=== PATIENT | female | born 1970 | race Caucasian/White ===

== ENCOUNTER → 2017-10-17 11:02 | Outpatient (REF) | payer BC, SELFPAY | LOC: LBN 11:02 | PROVIDERS: PCP Emergency Medicine; Visit Provider Emergency Medicine | DX: R19.7 Diarrhea, unspecified (principal) | CPT/HCPCS: 87329 ==

== ENCOUNTER → 2017-10-17 12:52 | Outpatient (CLI) | payer BC, SELFPAY ==
[2017-10-20 10:26] LABS: Measles IgG Antibody Positive; Mumps Antibody IgG Positive (Negative); Rubella IgG Ab (UVM) Positive
[2017-10-20 12:46] LABS: HBs Antibody, Quant 44.1 mIU/mL; Hepatitis B Surface Ab Positive
== END ==
PROVIDERS: PCP Emergency Medicine; Visit Provider Emergency Medicine
DX: Z01.84 Encounter for antibody response examination (principal)
CPT/HCPCS: 36415; 86706; 86735; 86762; 86765

== ENCOUNTER 2018-01-02 17:49 | Outpatient (REF) | payer BC, SELFPAY ==
--- NOTE | 2018-01-02 16:00 | PAPFT_PTH ---
PATIENT: Jena Mancia LOC: [facility] U#:[id number] AGE/SX: 47/F ROOM: RE01/02/[address]: Ada Perez MD : 1970 BED: DIS: 01/02/2018 SPEC #: [id number] RECD: 01/05/18 17:44 STATUS: JUNE REFabienne #: [id number] DARRIAN: 01/02/18 16:[address]: Ada Perez DEPT: [facility] Cytology RECD BY: Angie Ocampo ENTERED: 01/05/18 17:44 SP TYPE: PAPFT OTHR DR: Titi Mendoza, DO Tissues: 1 - CX/ENDOCX FOR PAP SMEARS Procedures: PAP THIN PREP/UVM Screening HPV DNA PROBE Comments: [id number]
== END 2018-01-02 18:09 ==
LOC: LBN 17:49
PROVIDERS: PCP Emergency Medicine; Visit Provider Obstetrics & Gynecology
DX: Z12.4 Encounter for screening for malignant neoplasm of cervix (principal); Z11.51 Encounter for screening for human papillomavirus (HPV)
CPT/HCPCS: 88142; 87624

== ENCOUNTER 2018-01-05 11:25 | Outpatient (CLI) | payer BC, SELFPAY ==
--- NOTE | 2018-01-05 15:00 | DI.US_ITS ---
SYMPTOM/DIAGNOSIS: UTERINE FIBROIDS D25.9, LEIOMYOMA PELVIC ULTRASOUND: Transabdominal and transvaginal examination was performed. The uterus measures 9.1 cm long x 5.9 cm AP x 6.4 cm transverse. There is a mass in the fundus of the uterus measuring 5.7 cm AP x 4.6 cm cranial caudad. This likely reflects a uterine fibroid. The fibroid obscures evaluation of the endometrium. The ovaries were not visualized transabdominally or transvaginally. No adnexal mass is seen. The kidneys show no evidence of hydronephrosis. No free pelvic fluid is identified. IMPRESSION: Limited examination of the pelvis. 2. Fibroid uterus. If further characterization of the uterine fibroid is needed, MRI of the pelvis should be considered.
== END 2018-01-05 11:45 ==
PROVIDERS: PCP Emergency Medicine; Visit Provider Obstetrics & Gynecology
DX: D25.9 Leiomyoma of uterus, unspecified (principal)
CPT/HCPCS: 76830; 76856

== ENCOUNTER 2018-01-07 00:36 | Outpatient (CLI) | payer BC, SELFPAY ==
--- NOTE | 2018-01-07 17:24 | DI.MAMMO_ITS ---
SYMPTOM/DIAGNOSIS: SCREENING, Z12.31 MAMMOGRAMS: Mammograms were interpreted according to the usual protocol including computer analysis with CAD system, tomosynthesis and C view imaging. Comparison is made with prior examinations. Breast density, Category C. No masses or microcalcifications are seen. There is nothing to suggest malignancy. IMPRESSION: Negative mammogram. Routine screening is recommended. Category 1. MQSA ASSESSMENT OF FINDINGS: Negative. Category 1. Patient will receive a letter notifying them of these results. Bi-RADS category C. The breasts are heterogeneously dense, which may obscure small masses.
== END 2018-01-07 00:56 ==
PROVIDERS: PCP Emergency Medicine; Visit Provider Obstetrics & Gynecology
DX: Z12.31 Encounter for screening mammogram for malignant neoplasm of breast (principal)
CPT/HCPCS: 77063; 77067

== ENCOUNTER 2018-02-18 12:15 | Outpatient (REF) | payer BC, SELFPAY ==
[2018-02-19 13:35] LABS: Chlamydia Result Negative; GC Result Negative; Specimen Description CERVIX
== END 2018-02-18 12:35 ==
LOC: LBN 12:15
PROVIDERS: PCP Emergency Medicine; Visit Provider Obstetrics & Gynecology Gynecology
DX: Z11.3 Encounter for screening for infections with a predominantly sexual mode of transmission (principal)
CPT/HCPCS: 87491; 87591

== ENCOUNTER 2018-04-22 00:42 | Outpatient (CLI) | payer BC, SELFPAY ==
--- NOTE | 2018-04-22 13:45 | DI.US_ITS ---
SYMPTOM/DIAGNOSIS: F/U FIBROID SIZE PELVIC ULTRASOUND: Transabdominal and transvaginal examination was performed. Comparison is made with 01/05/18. The uterus is enlarged measuring 7.7 cm. long by 6 cm. AP by 6.9 cm. transverse. There is a mass in the fundus of the uterus measuring 5.5 cm. by 4.6 cm. by 6.1 cm. This compares with 5.7 cm. by 4.6 cm. on the prior examination. The endometrial stripe was not visualized due to obscuration by the fibroid. The right ovary was visualized and is grossly unremarkable. There is normal blood flow. No evidence of torsion. The left ovary was not visualized transabdominally or transvaginally. No suspicious left adnexal mass is seen. No free pelvic fluid is appreciated. IMPRESSION: Stable uterine fibroid.
== END 2018-04-22 01:02 ==
PROVIDERS: PCP Emergency Medicine; Visit Provider Obstetrics & Gynecology
DX: D25.9 Leiomyoma of uterus, unspecified (principal); N92.4 Excessive bleeding in the premenopausal period; N85.2 Hypertrophy of uterus
CPT/HCPCS: 76830; 76856

== ENCOUNTER 2018-04-27 00:42 | Outpatient (CLI) | payer BC, SELFPAY ==
--- NOTE | 2018-04-27 08:25 | DI.US_ITS ---
SYMPTOMS/DIAGNOSIS: LEFT FLANK PAIN, EPIGASTRIC PAIN, R10.13 ABDOMEN ULTRASOUND: Comparison is made with CT of the abdomen and pelvis dated [id number]. The liver is normal in size and echogenicity. There is no biliary dilatation. A few tiny stones are seen in the gallbladder. There is a question of a nonmobile stone vs calcified polyp near the fundus of the gallbladder. There is no gallbladder wall thickening. A duplex collecting system of the left kidney is again noted. The right kidney is unremarkable. The spleen and visualized portions of the pancreas as well as aorta are unremarkable. There is no ascites. IMPRESSION: Cholelithiasis. Question of a gallbladder polyp vs nonmobile stone. No renal calculi or hydronephrosis is seen.
== END 2018-04-27 01:02 ==
PROVIDERS: PCP Emergency Medicine; Visit Provider Emergency Medicine
DX: R10.13 Epigastric pain (principal); R10.32 Left lower quadrant pain; K80.20 Calculus of gallbladder without cholecystitis without obstruction
CPT/HCPCS: 76700

== ENCOUNTER 2019-05-19 11:07 | Outpatient (CLI) | payer BC, SELFPAY ==
[2019-05-19 12:33] LABS: Abs Immature Grans 0.01 k/cumm (0.0-0.09); Absolute Basophil Count 0.02 k/cumm (0.0-0.2); Absolute Eosinophil Count 0.11 k/cumm (0.0-0.7); Absolute Lymphocyte Count 1.61 k/cumm (1.2-3.4); Absolute Monocyte Count 0.54 k/cumm (0.11-0.7); Absolute Neutrophil Count 4.26 k/cumm (1.2-6.7); Basophils % 0.3; Eosinophils % 1.7; HCT 41.7 % (36.0-46.0); HGB 14.1 g/dL (12.0-15.5); Immature Grans % 0.2 %; Lymphocytes % 24.6; Mean Corp. HGB Concentration 33.8 g/dL (32.0-36.0); Mean Corpuscular Hemoglobin 31.8 pg (27.0-33.0); Mean Corpuscular Volume 94.1 fL (80-95); Mean Platelet Volume 10.6 fL (8.0-11.0); Monocytes % 8.2; Platelet Count 194 x1000/uL (130-400); RBC 4.43 m/cumm (4.00-5.20); RBC Distribution Width 12.8 % (11.7-14.6); White Blood Cell Count 6.55 k/cumm (4.4-10.8)
[2019-05-19 12:45] LABS: ALT 18 U/L (14-59); AST 16 U/L (15-37); Albumin 4.1 g/dL (3.4-5.0); Alkaline Phosphatase 95 U/L (46-116); Anion Gap 6.1 mmol/L (3-11); BUN 14 mg/dL (7-18); Bilirubin, Total 0.9 mg/dL (0.2-1.0); CO2 30.9 mmol/L (21.0-32.0); CREATININE 0.84 mg/dL (0.55-1.02); Calcium 9.1 mg/dL (8.5-10.1); Calculated LDL 108 mg/dL (<100); Chloride 104 mmol/L (98-107); Cholesterol 196 mg/dL (<200); Glucose 86 mg/dL (74-106); HDL Cholesterol 66 mg/dL (40-60); Potassium 4.3 mmol/L (3.5-5.1); Sodium 141 mmol/L (136-145); TSH (W/Ref FT4) 1.35 uIU/mL (0.36-3.74); Total Protein 6.8 g/dL (6.4-8.2); Triglyceride 112 mg/dL (<150)
[2019-05-19 14:32] LABS: ESR 7 mm/hr (0-20)
[2019-05-20 04:31] LABS: Vitamin D 25 Total 23.8 ng/ml (30-100)
== END 2019-05-19 11:27 ==
PROVIDERS: PCP Emergency Medicine; Visit Provider Internal Medicine
DX: Z00.00 Encounter for general adult medical examination without abnormal findings (principal); R63.5 Abnormal weight gain; R79.89 Other specified abnormal findings of blood chemistry; K21.9 Gastro-esophageal reflux disease without esophagitis; R50.9 Fever, unspecified; M25.50 Pain in unspecified joint
CPT/HCPCS: 36415; 80053; 80061; 82306; 85652; 84443; 85025

== ENCOUNTER 2019-05-24 01:58 | Outpatient (CLI) | payer BC, SELFPAY ==
--- NOTE | 2019-05-24 13:30 | DI.MAMMO_ITS ---
EXAM: MG MAMMO SCREENING CLINICAL HISTORY: SCREENING, Z12.39 TECHNIQUE: Mammograms were interpreted according to the usual protocol including computer analysis w [employer] CAD system, tomosynthesis and C-view imaging. COMPARISON: Current examination is compared with previous examinations including January 2018 FINDINGS: The breasts are heterogeneously dense. No dominant mass or clumped microcalcification is identified in either breast. Current examination is compared with previous examinations including January 2018 and there has been no gross interval change in appearance in comparison with the previous studies. IMPRESSION: No specific evidence of malignancy at this time. Routine screening examinations are suggested at yea rly intervals in this age group according to the ACS/ACR guidelines. BI-RADS Cat 1 - Negative Breast Density - Category C - Heterogeneously dense
== END 2019-05-24 02:18 ==
PROVIDERS: PCP Emergency Medicine; Visit Provider Internal Medicine
DX: Z12.31 Encounter for screening mammogram for malignant neoplasm of breast (principal)
CPT/HCPCS: 77063; 77067

== ENCOUNTER 2019-12-03 04:40 | Outpatient (CLI) | payer BC, SELFPAY ==
--- NOTE | 2019-12-03 06:30 | DI.US_ITS ---
EXAM: US ABDOMEN CLINICAL HISTORY: F/U GB POLYP OF 10/2018,K82.4 TECHNIQUE: Ultrasound abdomen performed using standard protocol. COMPARISON: US US ABDOMEN from 04/27/2018 FINDINGS: LIVER: Normal size and echogenicity. No focal liver lesions are seen.. GALLBLADDER: There is a 5 millimeter mobile stone. A 2 millimeter nonmobile echogenic focus is seen in the fundus the gallbladder which may represent a small polyp.. No evidence of wall thickening. No pericholecystic fluid identified. MATA'S SIGN: Negative. BILIARY SYSTEM: No intrahepatic or extrahepatic biliary ductal dilation. KIDNEYS: Kidneys are symmetric in size. No evidence of renal calculi. No evidence of hydronephrosis. No renal mass or cyst identified. PANCREAS: Normal where visualized. SPLEEN: Not enlarged. ABDOMINAL AORTA AND IVC: Visualized portions normal caliber. ASCITES: None seen. IMPRESSION: Mobile 5 millimeter gallstone. 2 millimeter polyp near the fundus.. DATA REPOSITORY:
== END 2019-12-03 05:00 ==
PROVIDERS: PCP Emergency Medicine; Visit Provider Surgery
DX: K80.80 Other cholelithiasis without obstruction (principal)
CPT/HCPCS: 76700

== ENCOUNTER 2020-05-19 22:20 | Outpatient (REF) | payer BC, SELFPAY ==
[2020-05-19 20:22] LABS: Calculated LDL 135 mg/dL (<100); Cholesterol 225 mg/dL (<200); HDL Cholesterol 68 mg/dL (40-60); Triglyceride 113 mg/dL (<150)
== END 2020-05-19 22:21 | disposition home or self-care (01) ==
LOC: LBN 22:20
PROVIDERS: PCP Emergency Medicine; Visit Provider Emergency Medicine
DX: Z00.00 Encounter for general adult medical examination without abnormal findings (principal); Z13.220 Encounter for screening for lipoid disorders
CPT/HCPCS: 80061

== ENCOUNTER 2020-06-07 02:09 | Outpatient (CLI) | payer BC, SELFPAY ==
--- NOTE | 2020-06-07 06:15 | DI.MAMMO_ITS ---
EXAM: MAMMO SCREENING CLINICAL HISTORY: screening,Z12.39 TECHNIQUE: Mammograms were interpreted according to the usual protocol including computer analysis w [employer] CAD system, tomosynthesis and C-view imaging. COMPARISON: 2011 through 2019 FINDINGS: The breasts are composed of heterogeneously dense fibroglandular densities, Breast Density category C . No suspicious masses or suspicious microcalcifications are seen. No skin thickening or abnormal axillary lymph nodes are seen. There has been no significant change from prior exams. IMPRESSION: BI-RADS Category 1, Negative mammogram. Yearly screening mammography is recommended. Breast Density Category C, heterogeneously Dense. The mammogram demonstrates the patient's breast tissue is dense. Dense breast tissue is very common a nd is not abnormal but dense breast tissue can make it harder to find cancer on a mammogram. Also, de nse breast tissue may increase breast cancer risk. This information about the result of the mammogram report was provided to the patient to raise their awareness. Use this report when you speak with the patient about their risks for breast cancer, which includes their family history. At that time, you may recommend additional screening tests (Ultrasound or MRI) as they might be useful based on their r isk. A negative radiographic report should not delay biopsy if a dominant or clinically suspicious mass is present. Up to ten percent of cancers are not identified on mammography. A negative report may reinforce clinical impression. Adenosis and dense breasts may obscure an underlying neoplasm. False positive reports average 6 to 10%.
== END 2020-06-07 02:29 ==
PROVIDERS: PCP Emergency Medicine; Visit Provider Emergency Medicine
DX: Z12.31 Encounter for screening mammogram for malignant neoplasm of breast (principal)
CPT/HCPCS: 77063; 77067

== ENCOUNTER 2020-09-05 18:21 | Outpatient (REF) | payer BC, MEDICAID, SELFPAY | END 2020-09-05 18:22 | disposition home or self-care (01) | LOC: LBN 18:21 | PROVIDERS: PCP Emergency Medicine; Visit Provider Nurse Practitioner | DX: N39.0 Urinary tract infection, site not specified (principal) | CPT/HCPCS: 87077; 87086; 87186 ==

== ENCOUNTER 2020-09-15 10:42 | Outpatient (REF) | payer BC, MEDICAID, SELFPAY ==
--- NOTE | 2020-09-15 09:35 | PAPFT_PTH ---
PATIENT: Jena Mancia LOC: [facility] U#:[id number] AGE/SX: 49/F ROOM: RE09/15/[address]: BRADEN Dillon : 1970 BED: DIS: 09/15/2020 SPEC #: [id number] RECD: 09/15/20 13:09 STATUS: JUNE REQ #: [id number] DARRIAN: 09/15/20 09:[address]: Madalyn Gil DEPT: [facility] Cytology RECD BY: Angie Ocampo ENTERED: 09/15/20 13:10 SP TYPE: PAPFT OTHR DR: Titi Mendoza, Tissues: 1 - CX/ENDOCX FOR PAP SMEARS Procedures: PAP THIN PREP/UVM Screening HPV DNA PROBE Comments: [id number]
== END 2020-09-15 10:43 | disposition home or self-care (01) ==
LOC: LBN 10:42
PROVIDERS: PCP Emergency Medicine; Visit Provider Nurse Practitioner Family
DX: R30.0 Dysuria (principal); Z12.4 Encounter for screening for malignant neoplasm of cervix; Z11.51 Encounter for screening for human papillomavirus (HPV)
CPT/HCPCS: 88142; 87086; 87624

== ENCOUNTER 2020-09-26 09:40 | Outpatient (REF) | payer BC, MEDICAID, SELFPAY | END 2020-09-26 09:41 | disposition home or self-care (01) | LOC: LBN 09:40 | PROVIDERS: PCP Emergency Medicine; Visit Provider Physician Assistant | DX: N39.0 Urinary tract infection, site not specified (principal) | CPT/HCPCS: 87077; 87086; 87186 ==

== ENCOUNTER 2020-10-11 10:05 | Outpatient (REF) | payer MEDICAID, SELFPAY ==
[2020-10-11 12:44] LABS: Bilirubin Negative (Negative); Blood Negative (Negative); Clarity Clear (Clear); Glucose Negative (Negative); Ketones Negative (Negative); Leukocyte Esterase Small (Negative); Nitrite Positive (Negative); Urobilinogen 0.2 EU/dL (Up TO 0.2); pH 5.5 (5-8)
[2020-10-11 12:59] LABS: Bacteria Few HPF (Negative); C & S Indicated? C&S Done As Ordered; Casts Negative LPF (Negative); Crystals Negative HPF (Negative); Epithelial Cells Few HPF (Negative); Mucus Negative (Negative); RBC Negative HPF (0-2); WBC 20-50 HPF (0-5)
== END 2020-10-11 10:06 | disposition home or self-care (01) ==
LOC: LBN 10:05
PROVIDERS: PCP Emergency Medicine; Visit Provider Nurse Practitioner Family
DX: N39.0 Urinary tract infection, site not specified (principal)
CPT/HCPCS: 87077; 81003; 81015; 87086; 87186

== ENCOUNTER 2020-10-18 01:19 | Outpatient (CLI) | payer MEDICAID, SELFPAY ==
--- NOTE | 2020-10-18 06:30 | DI.US_ITS ---
Exam(s) US PELVIS TRANSVAGINAL EXAM: US PELVIS TRANSVAGINAL CLINICAL HISTORY: RLQ pain, Hx fibroid uterus,R10.31 TECHNIQUE: Ultrasound of the pelvis was performed both transabdominal and transvaginal. COMPARISON: US US PELVIS TRANSVAGINAL from 04/22/2018 US US PELVIS TRANSVAGINAL from 04/22/2018 US US ABDOMEN from 12/03/2019 FINDINGS: UTERUS: Measures 9.3 cm length x 5.8 cm AP x 7.3 cm wide. Again noted is a large fundal level mass measuring 5.1 x 4.9 x 6.2 cm on today's study, similar to th e previous measurements. This mass obscures visualization of the endometrium. It is probably a larg e submucosal fibroid There is no fluid in the endometrial canal. CERVIX: There are few nabothian cysts again evident. RIGHT OVARY: Measures 2.1 x 1.4 x 1.8 cm No significant cysts nor masses evident in the right ovary. LEFT OVARY: Left ovary is not seen on today's study CUL-DE-SAC: No free fluid evident. IMPRESSION: 1. Large fundus level mass again noted, basically unchanged in size. This is probably a subserosal f ibroid. 2. No significant findings in the right ovary. Left ovary was not able to be identified on today's s tudy. 3. No free fluid evident in the adnexal regions and cul-de-sac. DATA REPOSITORY:
== END 2020-10-18 01:39 ==
PROVIDERS: PCP Emergency Medicine; Visit Provider Nurse Practitioner Family
DX: R10.31 Right lower quadrant pain; Z87.42 Personal history of other diseases of the female genital tract; R19.07 Generalized intra-abdominal and pelvic swelling, mass and lump; N88.8 Other specified noninflammatory disorders of cervix uteri
CPT/HCPCS: 76830; 76856

== ENCOUNTER 2020-11-08 04:31 | Outpatient (CLI) | payer MEDICAID, SELFPAY ==
--- NOTE | 2020-11-08 11:30 | RT.EKG_ITS ---
APPROVED REPORT Exam: Resting ECG Reason for Exam: R07.9 chest pain Patient Location: O HR:69 bpm ECG Measurements Heart Rate 69 AXIS IA 154 P 47 QRSd 82 QRS 40 QT 418 T 40 QTc 449 Conclusion Sinus rhythm...normal P axis, V-rate 60- 99 Low voltage, precordial leads...precordial leads <1.0mV
== END 2020-11-08 04:32 | disposition home or self-care (01) ==
LOC: RT 04:32
PROVIDERS: PCP Emergency Medicine; Visit Provider Surgery
DX: R07.9 Chest pain, unspecified (principal)
CPT/HCPCS: 93005; 93010

== ENCOUNTER 2020-12-20 19:12 | Outpatient (REF) | payer MEDICAID, SELFPAY ==
[2020-12-20 22:20] LABS: Bilirubin Negative (Negative); Blood Negative (Negative); Clarity Clear (Clear); Glucose Negative (Negative); Ketones Negative (Negative); Leukocyte Esterase Negative (Negative); Nitrite Negative (Negative); Urobilinogen 0.2 EU/dL (Up TO 0.2); pH 6.5 (5-8)
== END 2020-12-20 19:13 | disposition home or self-care (01) ==
LOC: LBN 19:12
PROVIDERS: PCP Emergency Medicine; Visit Provider Nurse Practitioner Family
DX: N39.0 Urinary tract infection, site not specified (principal); N89.8 Other specified noninflammatory disorders of vagina
CPT/HCPCS: 81003; 87480; 87510; 87660

== ENCOUNTER 2021-02-20 01:36 | Outpatient (CLI) | payer MEDICAID, SELFPAY ==
[2021-02-20 10:24] LABS: Source Nasal/Nares
[2021-02-20 13:07] LABS: COVID-19 PCR Negative (Negative)
== END 2021-02-20 01:37 | disposition home or self-care (01) ==
LOC: LBO 01:36
PROVIDERS: PCP Emergency Medicine; Visit Provider Surgery
DX: Z20.822 Contact with and (suspected) exposure to COVID-19 (principal); Z01.818 Encounter for other preprocedural examination
CPT/HCPCS: 87635

== ENCOUNTER 2021-02-21 07:26 | Day surgery (SDC) | payer MEDICAID, SELFPAY ==
--- NOTE | 2021-02-20 10:06 | GB_PTH ---
PATIENT: Jena Mancia LOC: [facility] U#:[id number] AGE/SX: 50/F ROOM: RE02/21/[address]: Connie Mckay MD : 1970 BED: DIS: 02/21/2021 SPEC #: [id number] RECD: 02/21/21 12:55 STATUS: JUNE REQ #: [id number] DARRIAN: 02/20/21 10:[address]: Connie Mckay DEPT: Surgical Specimen RECD BY: Angie Ocampo ENTERED: 02/21/21 12:56 SP TYPE: GB OTHR DR: Titi Mendoza DO Tissues: 1 - GALLBLADDER Procedures: GROSS AND MICRO LEVEL 3 Comments: [id number]
[2021-02-21] VITALS (16 sets, daily range): BP systolic 90–117; BP diastolic 55–86; PULSE 61–90; RESP 12–18; TEMP 36–37; O2SAT 95–100; BMI 26.4
--- NOTE | 2021-02-21 06:24 | W.ANESPRE ---
General Info Date of Service Date Performed: 02/21/21 Height: 5 ft Weight: 61.462 kg Body Mass Index (BMI): 26.4 Surgical Procedure: Operation Date: 02/21/21 09:25 Proposed Procedures Side Surgeon p Cholecystectomy Laparoscopic Connie Mckay MD Meds Allergies and Home Medications Allergies Allergy/AdvReac Type Severity Reaction Status Date / Time oxycodone Allergy Unknown FACIAL Verified 02/21/21 07:38 SWELLING; KNOCKED HER OUT Home Medication Medication Instructions Recorded ibuprofen [Advil] 400 mg PO Q4H PRN tab-cap 08/05/12 multivitamin [One Daily 1 ea PO daily prn 04/19/15 Multivitamin] phenazopyridine 200 mg tablet 200 mg PO TID PRN #6 tab 09/26/20 aspirin 81 mg PO DAILY 02/20/21 doxycycline hyclate 50 mg PO BID PRN 02/20/21 Current Visit Medications: Current Medications Generic Name Dose Route Start Last Admin Trade Name Freq PRN Reason Stop Dose Admin Acetaminophen 1,000 mg 02/21/21 06:00 Acetaminophen 500 Mg Tab PO 02/21/21 23:59 PREOP GUIDO Celecoxib 200 mg 02/21/21 06:00 Celecoxib 200 Mg Cap PO 02/21/21 23:59 PREOP GUIDO Gabapentin 600 mg 02/21/21 06:00 Gabapentin 300 Mg Cap PO 02/21/21 23:59 PREOP GUIDO Ringer's Solution 1,000 mls @ 80 mls/hr 02/21/21 06:00 IV 03/22/21 23:59 INFUSION GUIDO Ampicillin Sodium/Sulbactam 100 mls @ 200 mls/hr 02/21/21 06:00 Sodium 3 gm/ Sodium Chloride IVPB 02/21/21 16:00 PREOP GUIDO IV Miscellaneous Supplies 1 each 02/21/21 06:00 Iv Access IV 03/22/21 23:59 DIRECTED GUIDO Sodium Chloride 0 ml 02/21/21 06:00 Normal Saline Flush 10 Ml Syr IV 03/22/21 23:59 PRN PRN Sodium Chloride 0 ml 02/21/21 06:00 Normal Saline 10 Ml Vial IJ 03/22/21 23:59 DIRECTED PRN Sterile Water 0 ml 02/21/21 06:00 Water,Injection,Sterile 10 Ml Vial IJ 03/22/21 23:59 DIRECTED PRN PFSH Active Problems Active Problems: Problem Status Onset Code Family history of colon cancer Asthma J45.909 GERD (gastroesophageal reflux disease) 08/29/14 K21.9 Tubular adenoma of colon 04/14/17 D12.6 Gallstones K80.20 Gallbladder polyp K82.4 Epigastric pain R10.13 Medical History Medical History Abscess of tonsil Adjustment disorder with mixed anxiety and depressed mood Asthma Calcific tendinitis of left shoulder (09/08/17) Encounter for annual physical exam Family hx of colon cancer (02/05/17) Fibroids GERD (gastroesophageal reflux disease) Insomnia Normal sleep study:11/2017 Irregular periods (08/16/11) Joint abscess Joint pain Low vitamin D level Premenopause menorrhagia Rosacea Skin lesion of chest wall Sore throat Uterine fibroid 5-6cm at fundus. Not symptomatic. Weight gain Surgical History Surgical History Appendectomy (~2009) section 2000,1997 Colonoscopy - MAC (04/14/17) Hx of appendectomy Tobacco Smoking/Tobacco Use Status: Never Passive smoking exposure: Yes Alcohol Alcohol Intake: current Alcohol intake frequency: a few times a week Alcohol type: wine and hard liquor Substance Use Substance use: Rarely Substance use type: marijuana Vital Signs and Lab Results Vital Signs Most Recent Vital Signs in EMR: Temp Pulse Resp BP Pulse Ox 36.6 C 86 18 117/83 97 02/21/21 07:30 02/21/21 07:30 02/21/21 07:30 02/21/21 07:30 02/21/21 07:30 Lab Results Blood Type / Crossmatch: No Data to Display Complete Blood Count: No Data to Display Complete Metabolic Panel: No Data to Display Liver Function Panel: No Data to Display Coagulation Panel: No Data to Display Cardiac Panel: No Data to Display Arterial Blood Gas: No Data to Display Venous Blood Gas: No Data to Display Pancreas Panel: No Data to Display Thyroid Panel: No Data to Display Infectious Disease: Coronavirus (COVID-19)(PCR) Negative (Negative) 02/20/21 08:35 02/20/21 Coronavirus 2019 Source Nasal/Nares 02/20/21 08:35 12/21/21 Blood Cultures: No Data to Display Toxicology Panel: No Data to Display Panel: No Data to Display Imaging and Studies Imaging and Studies Study information below may be from another EMR and interpreted by another provider. Please see original notes in EMR for more complete details. EKG Summary: 11/2020: sinus rhythm. Anesthesia Assessment and Plan Anesthesia History Personal History: No History of Anesthesia Complications Family History: No Family History of Anesthesia Complications Exercise Tolerance Exercise Tolerance: Metabolic Equivalents>4 Cardiac & Pulmonary Exam Cardiac Exam: Normal S1/S2 Heart Sounds Pulmonary Exam: Clear Bilateral Breath Sounds Implantable Cardiac Device Does patient have a Pacemaker or an ICD?: No Airway Exam Known Difficult Airway: No Mallampati Class: 2 Mouth Opening: Narrow (< 3cm) Thyromental Distance: Greater than 3 cm Neck Range of Motion: Limited ROM Neck Circumference: Normal Teeth Condition: Normal Dentition ASA Classification ASA Score: ASA 2 Emergency Case?: No NPO Status NPO Status: NPO Clears >2 hours, Solids >8 hours Status Status: Not Per Patient Anesthesia Plan Resuscitation Status: Full Code Anesthesia Technique: General Anesthesia Airway Planned: Endotracheal Tube Pain Management: Surgeon and patient request nerve block (ESPB. ) Monitors Used: Standard Monitors Preoperative Comments:: 50 yo female with biliary colic here for lap jacques. Sig PMHx: GERD (well controlled), occ EtOH/cannabis, asthma, anxiety.
--- NOTE | 2021-02-21 06:42 | W.PM.OP ---
Date of service: 02/21/21 Time of Service: 10:20 Operative Note Operative Note DATE OF PROCEDURE: 02/21/21 PRE-OP DIAGNOSIS: Biliary colic POST-OP DIAGNOSIS: same PROCEDURE: Laparoscopic Cholecystectomy SURGEON: Connie Mckay CURATORIAL ASSISTANT: Sera Cervantes ANESTHESIA TYPE: General LMA/ETT (Americo Cummings CRNA) and Primary Nerve Block Refer to Anesthesia Record ESTIMATED BLOOD LOSS: 15 PATHOLOGY: other (Gallbladder and content) COMPLICATIONS: None Patient was transported to: PACU Patient's condition: stable Indications: Jena continues to have right upper quadrant pain and nausea. Her heartburn/reflux symptoms have resolved since starting on omeprazole. We discussed laparoscopic cholecystectomy in detail using a pamphlet with pictures. We reviewed the risks, benefits and complications as well as alternatives. We also discussed Covid testing prior to the procedure. We reviewed postoperative restrictions. Risks, benefits, complications were reviewed with the patient in the office. Complications include but are not limited to bleeding, infection, injury to stomach, small bowel and large bowel, injury to the pancreas, injury to the common bile duct necessitating drainage and referral to tertiary center for repair, bile leak, adverse reactions to the medications, complications of intubation including a sore throat or injury to the uvula, MT, stroke and even . Questions were entertained and answered to her satisfaction and she wished to proceed. No guarantees were given or implied. Proceed with laparoscopic cholecystectomy Findings: Grossely normal Gallbladder Procedure Description: After informed consent was obtained the patient was brought to the operating room, placed in a supine position and monitors were applied. SCDs were applied to her lower extremities and she was placed under general anesthesia and intubated without difficulty. Her abdomen was then prepped and draped in a sterile fashion using ChloraPrep. At this point a timeout was done and the patient's name, date of , procedure type, allergies to medications, metal in her body, antibiotic and DVT prophylaxis, and fire risk was assessed. At this point 0.25% Bupivocaine was injected just above the umbilicus into the dermis and subcutaneous tissue. A 5 mm incision was made with an 11 blade. The skin next to the incision was grasped with penetrating towel clamps and while pulling up on the skin a 5 mm port was placed under direct visualization. The abdomen was insuflated and then 3 more ports were placed. A 12 mm port was placed in the subxiphoid area and two 5 mm ports were placed in the right upper quadrant. The liver was inspected and looked normal. The patient's bed was then turned to the left and her head was brought up. The gallbladder was grasped at the body and pushed towards the right shoulder, this allowed me to visualize the neck of the gallbladder. The neck was grasped and pulled towards the right flank and down allowing me to visualize the lymph node. Using a [place] dissector with cautery the lymph node was gently dissected away from the tissues and the fatty tissue was also dissected away. The cystic duct was identified it was normal in size. The duct was dissected 360 degrees using the [place] dissector in order for me to visualize its entrance into the gallbladder. Liver was noted behind it. There were no other structures right behind. Critical view was achieved. 3 clips were placed one proximal and 2 distal and the cystic duct was cut. The cystic artery was then identified and dissected 360 degrees. It was located just medial to the cystic duct. It was visualized going into the gallbladder. Once dissected 3 more clips were placed one proximal and 2 distal and the artery was cut. Using the hook dissector the gallbladder was then dissected away from the liver bed and placed into an Endo Catch bag and pulled through the 12 mm port site. The 12 mm port was placed back into the abdomen under direct visualization. The liver bed was inspected no bleeding was noted. The abdomen was then irrigated with a liter of normal saline until the effluent was clear. Once all the fluid was suctioned out, the 12 mm and the 2 right upper quadrant ports were removed under direct visualization and no bleeding was noted from the fascia. The abdomen was deflated completely and lastly the umbilical port was removed. The skin was cleaned and the incisions were closed with 4-0 Vicryl. The skin was dried and skin affix was applied over the closed incisions. Needle, instrument and sponge counts were correct at the end of the case. At this point the patient was woken up, extubated and taken back to recovery in stable condition. There were no immediate complications.
--- NOTE | 2021-02-21 06:45 | W.PM.DSUDISC ---
Discharge Plan Disposition Patient Disposition: HOME Condition: Good Discharge Details Reason For Visit: Laparoscopic cholecystectomy Attending Provider: Connie Mckay Primary Care Provider: Titi Mendoza Home Meds and New Rx's Prescriptions: Continued phenazopyridine [Pyridium] 200 mg tablet 200 mg PO TID PRN (Reason: pain) Qty: 6 RF: 0 ibuprofen [Advil] 200 MG tablet 400 mg PO Q4H PRN RF: 0 multivitamin [One Daily Multivitamin] 1 EACH tablet 1 ea PO daily prn RF: 0 doxycycline hyclate 50 mg Capsule 50 mg PO BID PRNRF: 0 aspirin 81 mg Capsule,Delayed Release(Dr/Ec) 81 mg PO DAILY RF: 0 Discharge Instructions Instructions: Laparoscopic Cholecystectomy (DC) Additional Instructions: Activity at Home after surgery: 1. Make sure you walk outside at least 4 times per day 2. You should be able to climb a flight of stairs 3. No driving while in pain or taking pain medications 4. No strenuous activity or heavy lifting for 2 weeks (laparoscopic surgery) Diet, Nutrition, & wound healin. Avoid alcohol until after you are recovered from your surgery 2. Make sure to eat plenty of lean protein (meat, fish, eggs, cottage cheese, beans) 3. Eat a variety of fruits and vegetables. Eat plenty of high fiber foods to avoid constipation. 4. Drink plenty of liquids to stay hydrated and avoid constipation Pain Medications: 1. Tylenol 650mg every 6 hours as needed and Ibuprofen 600 mg every 6 hours as needed. You may alternate between the 2 medications every 3 hours 2. If a narcotic has been prescribed take as directed only for breakthrough pain For Constipation: 1. Take Milk of Magnesia or MiraLax as needed for constipation Other: 1. You may shower daily. Do not scrub the incisions 2. Do not soak the incisions for 1 week 3. You may alternate ice and heat as needed for pain and swelling Wound Care: 1. Keep the incisions clean and dry Please call our office if you develop: 1. Fevers >101.5 2. Nausea or Vomiting 3. Worsening pain 4. Redness and thick discharge from the wounds If after hours please call the Hospital at and ask to speak to the on-call surgeon Referrals: Sera Cervantes PA [[facility]] - 03/08/21 2:00 pm Activity:: as above Remove Dressings/Wound Care:: Do Not Remove Shower/Bathe:: 24 hours Diet:: low fat Discharge Orders Discharge Orders: Discharge Order (Routine); Ordered 02/21/21 Ordered By: Connie Mckay
[2021-02-21] MEDS: Lactated Ringers 1,000 ML 80 ML IV (08:08)
[2021-02-21] MEDS: Acetaminophen 500 MG TAB 1000 MG PO (08:09)
[2021-02-21] MEDS: Celecoxib 200 MG CAP PO (08:09)
[2021-02-21] MEDS: Gabapentin 300 MG CAP 600 MG PO (08:09)
[2021-02-21] MEDS: AMPICILLIN/SULBACTAM 3 GM in Normal Saline 100 ML IVPB (09:25)
--- NOTE | 2021-02-21 09:47 | W.ANESNERVE ---
Nerve Block Single Injection Procedure Date and Time Date Performed: 02/21/21 Procedure Start: 09:03 Location Where Procedure Performed Procedure Location: Day Surgery Unit Reason Performed: Postoperative Analgesia Requesting Provider: Connie Mckay Timeout Performed Timeout Performed: Yes Monitoring Used ECG, Blood Pressure and SpO2 Sterility Sterility: Hand Hygiene, Surgical Cap, Surgical Mask and Sterile Gloves Sedation Given During Procedure Sedation Given (Indicate Dose Given): Versed IV (2mg + 1 mg) Dose:: 3 mg Patient Mental Status Patient Mental Status: Sedate with meaningful communication Nerve Block 1st Nerve Block: Laterality: Right Block Type: Erector Spinae (Upper) Needle / Catheter Used: 100mm SonoPlex II Local Anesthetic Bolus (Indicate Dose Given): Lidocaine used for local infiltration of skin, Injected in 3-5ml increments after negative blood aspiration, Bupivacaine 0.375% Dose:: 20 mL and Exparel Dose:: 10 mL Additives (Indicate Dose Given): None Ultrasound: Sterile probe cover and gel used Ultrasound Image Saved?: Yes Nerve Stimulator: Not Used Paresthesia: None Procedure Tolerated: No Complications Procedure Outcome: Successful Performed By: Americo Cummings Other (not listed above): leslie bass Supervised By: Americo Cummings 2nd Nerve Block: Laterality: Left Block Type: Erector Spinae (Upper) Needle / Catheter Used: 100mm SonoPlex II Local Anesthetic Bolus (Indicate Dose Given): Injected in 3-5ml increments after negative blood aspiration and Bupivacaine 0.25% Dose:: 20 mL Additives (Indicate Dose Given): None Ultrasound: Sterile probe cover and gel used Ultrasound Image Saved?: Yes Nerve Stimulator: Not Used Paresthesia: None Procedure Tolerated: No Complications and Patient tolerated well Procedure Outcome: Successful Performed By: Americo Cummings
[2021-02-21] MEDS: HYDROmorphone 2 MG/ML VIAL IVP ×2 (11:27→11:40)
--- NOTE | 2021-02-21 13:10 | W.ANESPOSTOP ---
Postoperative Evaluation Date, Time and Location Date Performed: 02/21/21 Time Performed: 13:10 Patient Location: PACU Vital Signs Most Recent Imported Vital Signs: Most Recent Vital Signs Temp Pulse Resp BP Pulse Ox 36.5 C 67 15 115/69 100 02/21/21 12:39 02/21/21 12:39 02/21/21 12:39 02/21/21 12:39 02/21/21 12:39 Pain Score Most Recent Pain Score: Most Recent Pain Score Pain Level 2 02/21/21 12:39 Assessment Mental Status: Awake (Alert & Oriented to Patient Baseline) Airway and Respiratory Function: Patent airway with normal (patient baseline) respiratory exam Cardiovascular Function: Hemodynamically Stable Hydration Status: Adequately Hydrated Nausea & Vomiting: No Nausea or Vomiting Pain: Pt. Denies Any Pain Peripheral Nerve Block: Patient did not receive a nerve block
== END 2021-02-21 15:30 | disposition home or self-care (01) ==
LOC: SUR 07:27
PROVIDERS: PCP Emergency Medicine; Visit Provider Surgery
PROC: 0FT44ZZ Resection of Gallbladder, Percutaneous Endoscopic Approach (ICD-10-PCS; CPT 47562; principal; 2021-02-21 09:15)
DX: K80.20 Calculus of gallbladder without cholecystitis without obstruction (principal); K21.9 Gastro-esophageal reflux disease without esophagitis; Z80.0 Family history of malignant neoplasm of digestive organs
CPT/HCPCS: 47562; 76942; 88304; J0295; J1100; J1885; J2250; J2405; J2704; J3475

== ENCOUNTER 2021-05-12 16:37 | Outpatient (REF) | payer MEDICAID, SELFPAY ==
[2021-05-12 17:05] LABS: Bilirubin Negative (Negative); Blood Negative (Negative); Clarity Cloudy (Clear); Glucose Negative (Negative); Ketones Negative (Negative); Leukocyte Esterase Trace (Negative); Nitrite Negative (Negative); Urobilinogen 0.2 EU/dL (Up TO 0.2); pH 7.5 (5-8)
[2021-05-12 17:13] LABS: Epithelial Cells Few HPF (Negative); RBC 0-2 HPF (0-2)
[2021-05-12 17:14] LABS: Bacteria Moderate HPF (Negative); C & S Indicated? Yes; Casts Negative LPF (Negative); Crystals Negative HPF (Negative); Mucus Negative (Negative)
[2021-05-14 13:55] LABS: COVID-19 RT-PCR UVMMC Result Negative (Negative)
== END 2021-05-12 16:38 | disposition home or self-care (01) ==
LOC: LBN 16:37
PROVIDERS: PCP Emergency Medicine; Visit Provider Physician Assistant
DX: Z20.822 Contact with and (suspected) exposure to COVID-19 (principal); N39.0 Urinary tract infection, site not specified; N76.0 Acute vaginitis
CPT/HCPCS: 87077; U0003; 81003; 81015; 87086; 87186; 87480; 87510; 87660

== ENCOUNTER 2021-06-11 11:18 | Outpatient (REF) | payer MEDICAID, SELFPAY ==
[2021-06-11 14:07] LABS: Abs Immature Grans 0.01 10^3/uL (0.0-0.06); Absolute Basophil Count 0.03 10^3/uL (0.0-0.2); Absolute Eosinophil Count 0.09 10^3/uL (0.0-0.7); Absolute Lymphocyte Count 1.94 10^3/uL (1.2-3.4); Absolute Monocyte Count 0.45 10^3/uL (0.1-0.8); Absolute Neutrophil Count 3.68 10^3/uL (1.2-6.7); Basophils % 0.5; Eosinophils % 1.5; HCT 40.5 % (36.0-46.0); HGB 14.1 g/dL (11.2-15.7); Immature Grans % 0.2; Lymphocytes % 31.3; MCH 31.2 pg (27.0-33.0); MCHC 34.8 % (32.0-36.0); MCV 89.6 fL (80-95); MPV 10.9 fL (8.0-11.0); Monocytes % 7.3; Neutrophils % 59.2; Nucleated RBC 0 %; Platelet Count 215 10^3/uL (130-400); RBC 4.52 10^6/uL (3.93-5.22); RDW 11.9 % (11.7-14.6); RDW-SD 38.6 fL
[2021-06-11 14:41] LABS: ALT 30 U/L (14-59); AST 15 U/L (15-37); Albumin 4.1 g/dL (3.4-5.0); Alkaline Phosphatase 113 U/L (46-116); Anion Gap 8.8 mmol/L (3-11); BUN 12 mg/dL (7-18); Bilirubin, Total 0.7 mg/dL (0.2-1.0); CO2 26.2 mmol/L (21.0-32.0); CREATININE 0.9 mg/dL (0.55-1.02); Calcium 10.1 mg/dL (8.5-10.1); Chloride 106 mmol/L (98-107); Glucose 102 mg/dL (74-106); Potassium 3.9 mmol/L (3.5-5.1); Sodium 141 mmol/L (136-145); Total Protein 7.4 g/dL (6.4-8.2)
== END 2021-06-11 11:19 | disposition home or self-care (01) ==
LOC: LBN 11:18
PROVIDERS: PCP Family Medicine; Visit Provider Surgery
DX: R10.9 Unspecified abdominal pain (principal); K21.9 Gastro-esophageal reflux disease without esophagitis; K80.20 Calculus of gallbladder without cholecystitis without obstruction
CPT/HCPCS: 80053; 85025

== ENCOUNTER 2021-06-18 02:37 | Outpatient (CLI) | payer MEDICAID, SELFPAY ==
[2021-06-18 11:50] LABS: Source Nasal/Nares
[2021-06-18 14:13] LABS: COVID-19 PCR Negative (Negative)
== END 2021-06-18 02:38 | disposition home or self-care (01) ==
LOC: LBO 02:37
PROVIDERS: PCP Family Medicine; Visit Provider Surgery
DX: Z20.822 Contact with and (suspected) exposure to COVID-19 (principal); Z01.818 Encounter for other preprocedural examination
CPT/HCPCS: 87635

== ENCOUNTER 2021-06-19 08:15 | Day surgery (SDC) | payer MEDICAID, SELFPAY ==
--- NOTE | 2021-06-18 13:07 | PDOC.DSDIS_ITS ---
Discharge Plan Disposition Patient Disposition: HOME Condition: Good Discharge Details Reason For Visit: colon scope Attending Provider: Vicky Blount Primary Care Provider: Cynthia Ogden Home Meds and New Rx's Prescriptions: Continued Adult 50 Plus Probiotic 4 billion cell capsule 4,000 mmu cells PO DAILY 0RF Rx Instructions: administer with a meal phenazopyridine [Pyridium] 200 mg tablet 200 mg PO TID PRN (Reason: pain) Qty: 6 0RF multivitamin [One Daily Multivitamin] 1 EACH tablet 1 ea PO daily prn 0RF doxycycline hyclate 50 mg Capsule 50 mg PO BID PRN0RF Label Comments: pt reports she hasnt taken in a year aspirin 81 mg Capsule,Delayed Release(Dr/Ec) 81 mg PO DAILY 0RF Discontinued polyethylene glycol 3350 17 gram/dose powder 238 g PO ONCE Qty: 238 0RF Rx Instructions: take per colonoscopy instructions bisacodyl [Dulcolax (bisacodyl)] 5 mg tablet,delayed release (DR/EC) 5 mg PO ONCE Qty: 4 0RF Rx Instructions: take per colonoscopy instructions Discharge Instructions Additional Instructions: [facility] Colonoscopy Post- Op Instructions Instructions for Everyone who is given Anesthesia: For your safety, please do the following for the next twenty-four (24) hours: *Do Not operate a motor vehicle (car, truck, motorcycle, etc.) *Do Not drink alcoholic beverages or use any recreational drugs for the first 24 hours or while taking pain medications. The medications in your body may have a reaction that can be dangerous. *Do Not make any important decisions or sign any important papers. Findings:normal biopy's were taken My office will send you a letter with the results in approximately 2 to 3 weeks time. Follow up: Repeat colonoscopy in 5 years time. 1. No lifting over 20 pounds or strenuous activity for the first 24 hours after your procedure. After 24 hours there are no restrictions on your activity but you may feel fatigued for a few days. 2. After you arrive home you may have a light meal and return to your normal diet as you can tolerate it without feeling sick to your stomach. 3. You may have a bloated, gaseous feeling in your belly (abdomen) after a colon oscopy. Passing gas and belching will help. Walking or lying down on your left side with your knees flexed may relieve the discomfort. Call the office at [phone] (Office) or [phone] (Hospital) right away if you notice any of the following: a.Vomiting of blood or ?coffee ground stools?. b.Rectal bleeding 1Tbsp, blood clots or continuous bleeding. c.Severe belly (abdominal) pain. d.A hard distended belly (abdomen) and an inability to pass gas. 4. Please don?t expect to have a normal BM (bowel movement) for 2-3 days after your procedure. 5. If there are questions regarding the findings of your procedure, please contact your doctor 6. If you are unable to contact your doctor with a problem, contact the hospital at [phone]. 7. Continue all your regular medications unless directed otherwise. I understand the above instructions and have no questions. Signature of Patient or Adult Escort Name of Responsible Adult Escort Signature of Nurse Date/Time Stand Alone Forms: Anesthesia Discharge Inst., Vi Szymanski ([facility]) Activity:: see above Diet:: seeabove Discharge Orders Discharge Orders: Discharge Order (Routine); Ordered 06/18/21 Ordered By: Vicky Blount
--- NOTE | 2021-06-18 13:08 | W.COLOREPORT ---
Colonoscopy Report Date of procedure: 06/19/21 Pre-op diagnosis general: rectal bleeding/A. polyps/family hx of CRC Post-op diagnosis procedure note: same Surgeon: Vicky Blount Anesthesia Type: General:No Airway Prep: Miralax/Dulcolax Retraction Time: 10 Procedure Description: After informed consent was obtained the patient was taken to the procedure room and placed in a left decubitous position. Monitors were applied and a time out was done. The patients name, date of , procedure, allergies to medications and metal in their body was reviewed. The patient was then sedated. Once sedated and comfortable a rectal exam was done. Large external hemorrhoids present, but with no acute inflammation/thrombosis. Internal exam revealed a normal sphincter tone and no palpable masses. The scope was then introduced and retrofelexed. Nointernal hemorrhoids were identified. The scope was then advanced to the cecum without difficulty. The TI and appendiceal orifice were identified. The prep was be BPS?3 for a total of 9. The scope was then slowly retracted over 10minutes back into the rectum. There are no polyps, AVMs, or diverticula visualized today. Because of the history of bleeding. Biopsies were taken at 90/60 cm in the rectum. The scope was removed and the patient was woken up and taken back to Same day surgery in stable condition. The patient tolerated the procedure well and there were no immediate complications. Follow up: The patient should follow up in 5 years, because of her family history of colon cancer, unless they develop changes in bowel habits or other new gastrointestinal complaints.
[2021-06-19 08:36] VITALS: BP 109/85; PULSE 98; RESP 18; TEMP 36.3; O2SAT 97
[2021-06-19] MEDS: Lactated Ringers 1,000 ML 80 ML IV (09:01)
--- NOTE | 2021-06-19 09:22 | W.ANESPRE ---
General Info Date of Service Date Performed: 06/19/21 Height: 4 ft 11.5 in Weight: 63.9 kg Body Mass Index (BMI): 27.9 Surgical Procedure: Operation Date: 06/19/21 09:05 Proposed Procedure Side Surgeon bryanna Blount, DO Meds Allergies and Home Medications Allergies Allergy/AdvReac Type Severity Reaction Status Date / Time oxycodone Allergy Unknown FACIAL Verified 06/18/21 12:16 SWELLING; KNOCKED HER OUT Home Medication Medication Instructions Recorded multivitamin (One Daily 1 ea PO daily prn 04/19/15 Multivitamin) phenazopyridine 200 mg tablet 200 mg PO TID PRN #6 tab 09/26/20 (Pyridium) aspirin 81 mg capsule,delayed 81 mg PO DAILY 02/20/21 release doxycycline hyclate 50 mg capsule 50 mg PO BID PRN 02/20/21 lactobacillus combination no.9 4 4,000 mmu cells PO DAILY 06/11/21 billion cell capsule (Adult 50 Plus Probiotic) Current Visit Medications: Current Medications Generic Name Dose Route Start Last Admin Trade Name Freq PRN Reason Stop Dose Admin Hyoscyamine Sulfate 0.125 mg 06/19/21 06:00 Hyoscyamine 0.125 Mg Sl/Oral/Chew SL 06/19/21 16:00 PREOP GUIDO Hyoscyamine Sulfate 0.125 mg 06/19/21 06:00 Hyoscyamine 0.125 Mg Sl/Oral/Chew SL 06/19/21 16:00 DIRECTED PRN Ringer's Solution 1,000 mls @ 80 mls/hr 06/19/21 06:00 06/19/21 09:01 IV 06/30/21 23:59 80 mls/hr INFUSION GUIDO Administration IV Miscellaneous Supplies 1 each 06/19/21 06:00 Iv Access IV 06/30/21 23:59 DIRECTED GUIDO Ondansetron HCl 4 mg 06/19/21 06:00 Ondansetron 4 Mg/2 Ml Vial IVP 06/19/21 16:00 Q4H PRN PRN Nausea / Vomiting Simethicone 160 mg 06/19/21 06:00 Simethicone 80 Mg Chew CH 06/19/21 16:00 DIRECTED GUIDO Sodium Chloride 0 ml 06/19/21 06:00 Normal Saline Flush 10 Ml Syr IV 06/30/21 23:59 PRN PRN Sodium Chloride 0 ml 06/19/21 06:00 Normal Saline 10 Ml Vial IJ 06/30/21 23:59 DIRECTED PRN Sterile Water 0 ml 06/19/21 06:00 Water,Injection,Sterile 10 Ml Vial IJ 06/30/21 23:59 DIRECTED PRN PFSH Active Problems Active Problems: Problem Status Onset Code Family history of colon cancer Asthma J45.909 GERD (gastroesophageal reflux disease) 08/29/14 K21.9 Tubular adenoma of colon 04/14/17 D12.6 Epigastric pain R10.13 Right flank pain R10.9 Rectal bleeding K62.5 Medical History Medical History Abscess of tonsil Adjustment disorder with mixed anxiety and depressed mood Asthma pt. denies Calcific tendinitis of left shoulder (09/08/17) Encounter for annual physical exam Family hx of colon cancer (02/05/17) Fibroids GERD (gastroesophageal reflux disease) Insomnia Normal sleep study:11/2017 Irregular periods (08/16/11) Joint abscess Joint pain Low vitamin D level Premenopause menorrhagia Rosacea Skin lesion of chest wall Sore throat Uterine fibroid 5-6cm at fundus. Not symptomatic. Weight gain Medical History Comments:: Pt reports that she had difficulty waking up from anesthesia following cholecystectomy. Pt reports she has a painful left shoulder and can be uncomfortble on her left side - pillows can help. Surgical History Surgical History Appendectomy (~2009) section Colonoscopy - MAC (04/14/17) Hx of section x2 Status post cholecystectomy (~02/21/21) Tobacco Smoking/Tobacco Use Status: Never Passive smoking exposure: Yes Second hand exposure: Yes Alcohol Alcohol Intake: current Alcohol intake frequency: a few times a week Alcohol type: wine and hard liquor Substance Use Substance use: Never Substance use type: does not use Vital Signs and Lab Results Vital Signs Most Recent Vital Signs in EMR: Most Recent Vital Signs Temp Pulse Resp BP Pulse Ox 36.3 C L 98 H 18 109/85 97 06/19/21 08:36 06/19/21 08:36 06/19/21 08:36 06/19/21 08:36 06/19/21 08:36 Lab Results Blood Type / Crossmatch: No Data to Display Complete Blood Count: White Blood Count 6.20 10^3/uL (4.4-10.8) 06/11/21 14:02 06/11/21 Red Blood Count 4.52 10^6/uL (3.93-5.22) 06/11/21 14:02 06/11/21 Hemoglobin 14.1 g/dL (11.2-15.7) 06/11/21 14:02 06/11/21 Hematocrit 40.5 % (36.0-46.0) 06/11/21 14:02 06/11/21 Platelet Count 215 10^3/uL (130-400) 06/11/21 14:02 06/11/21 Complete Metabolic Panel: Sodium Level 141 mmol/L (136-145) 06/11/21 10:38 06/11/21 Potassium Level 3.9 mmol/L (3.5-5.1) 06/11/21 10:38 06/11/21 Chloride Level 106 mmol/L (98-107) 06/11/21 10:38 06/11/21 Carbon Dioxide Level 26.2 mmol/L (21.0-32.0) 06/11/21 10:38 06/11/21 Blood Urea Nitrogen 12 mg/dL (7-18) 06/11/21 10:38 06/11/21 Creatinine 0.9 mg/dL (0.55-1.02) 06/11/21 10:38 06/11/21 Estimated GFR/1.73 m2 >= 60.00 (mL/min/1.73m2) 06/11/21 10:38 06/11/21 Calcium Level 10.1 mg/dL (8.5-10.1) 06/11/21 10:38 06/11/21 Albumin 4.1 g/dL (3.4-5.0) 06/11/21 10:38 06/11/21 Glucose Level 102 mg/dL (74-106) 06/11/21 10:38 06/11/21 Liver Function Panel: Alanine Aminotransferase (ALT/SGPT) 30 U/L (14-59) 06/11/21 10:38 06/11/21 Aspartate Amino Transf (AST/SGOT) 15 U/L (15-37) 06/11/21 10:38 06/11/21 Coagulation Panel: No Data to Display Cardiac Panel: No Data to Display Arterial Blood Gas: No Data to Display Venous Blood Gas: No Data to Display Pancreas Panel: No Data to Display Thyroid Panel: No Data to Display Infectious Disease: Coronavirus (COVID-19)(PCR) Negative (Negative) 06/18/21 08:55 06/18/21 Coronavirus 2019 Source Nasal/Nares 06/18/21 08:55 06/18/21 Blood Cultures: No Data to Display Toxicology Panel: No Data to Display Panel: No Data to Display Imaging and Studies Imaging and Studies Study information below may be from another EMR and interpreted by another provider. Please see original notes in EMR for more complete details. EKG Summary: 11/2020: sinus rhythm. Anesthesia Assessment and Plan Anesthesia History Personal History: No History of Anesthesia Complications Family History: No Family History of Anesthesia Complications Exercise Tolerance Exercise Tolerance: Metabolic Equivalents>4 Pertinent Negatives Pertinent Negatives: No Symptoms of GERD Cardiac & Pulmonary Exam Cardiac Exam: Normal S1/S2 Heart Sounds Pulmonary Exam: Clear Bilateral Breath Sounds Implantable Cardiac Device Does patient have a Pacemaker or an ICD?: No Airway Exam Known Difficult Airway: No Mallampati Class: 2 Mouth Opening: Narrow (< 3cm) Thyromental Distance: Greater than 3 cm Neck Range of Motion: Limited ROM Neck Circumference: Normal Teeth Condition: Normal Dentition ASA Classification ASA Score: ASA 2 Emergency Case?: No NPO Status NPO Status: NPO Clears >2 hours, Solids >8 hours Status Status: Negative HCG Anesthesia Plan Resuscitation Status: Full Code Anesthesia Technique: General Anesthesia Airway Planned: Natural Airway Monitors Used: Standard Monitors
[2021-06-19 09:24] VITALS: BMI 27.9
[2021-06-19] MEDS: Hyoscyamine 0.125 MG SL/ORAL/CHEW SL (09:27)
--- NOTE | 2021-06-19 11:17 | BOWEL_PTH ---
PATIENT: Jena Mancia LOC: [facility] U#:[id number] AGE/SX: 50/F ROOM: RE06/19/[address]: Vicky Blount : 1970 BED: DIS: 06/19/2021 SPEC #: [id number] RECD: 06/19/21 12:31 STATUS: JUNE RE #: [id number] DARRIAN: 06/19/21 11:[address]: Vicky Blount DEPT: Surgical Specimen RECD BY: Angie Ocampo ENTERED: 06/19/21 12:33 SP TYPE: Bowel OTHR DR: Cynthia Ogden Tissues: 1 - BIOPSY BOWEL 2 - BIOPSY BOWEL 3 - BIOPSY BOWEL Procedures: GROSS AND MICRO LEVEL 4 Comments: [id number]
[2021-06-19 11:26] VITALS: BP 98/78; PULSE 90; RESP 16; TEMP 35.9; O2SAT 95
[2021-06-19] MEDS: Simethicone 80 MG CHEW 160 MG CH (11:40)
--- NOTE | 2021-06-19 11:46 | W.ANESPOSTOP ---
Postoperative Evaluation Date, Time and Location Date Performed: 06/19/21 Time Performed: 11:47 Patient Location: Day Surgery Unit Vital Signs Most Recent Imported Vital Signs: Most Recent Vital Signs Temp Pulse Resp BP Pulse Ox 35.9 C L 90 16 98/78 L 95 06/19/21 11:26 06/19/21 11:26 06/19/21 11:26 06/19/21 11:26 06/19/21 11:26 Pain Score Most Recent Pain Score: Most Recent Pain Score Pain Level 0 06/19/21 11:26 Assessment Mental Status: Awake (Alert & Oriented to Patient Baseline) Airway and Respiratory Function: Patent airway with normal (patient baseline) respiratory exam Cardiovascular Function: Hemodynamically Stable Hydration Status: Adequately Hydrated Nausea & Vomiting: No Nausea or Vomiting Pain: Pt. Denies Any Pain Peripheral Nerve Block: Patient did not receive a nerve block
[2021-06-19 12:01] VITALS: BP 112/80; PULSE 86; RESP 16; TEMP 36.3; O2SAT 98
== END 2021-06-19 12:38 | disposition home or self-care (01) ==
LOC: SUR 08:15
PROVIDERS: PCP Family Medicine; Visit Provider Surgery
PROC: 0DJD8ZZ Inspection of Lower Intestinal Tract, Via Natural or Artificial Opening Endoscopic (ICD-10-PCS; CPT 45378; principal; 2021-06-19 09:00)
DX: Z80.0 Family history of malignant neoplasm of digestive organs; K21.9 Gastro-esophageal reflux disease without esophagitis; J45.909 Unspecified asthma, uncomplicated; K62.5 Hemorrhage of anus and rectum; Z86.010 Personal history of colon polyps; K63.89 Other specified diseases of intestine
CPT/HCPCS: 45380; 88305; J2001; J3490

== ENCOUNTER 2021-09-05 16:25 | Outpatient (REF) | payer MEDICAID, SELFPAY | END 2021-09-05 16:26 | disposition home or self-care (01) | LOC: LBN 16:25 | PROVIDERS: PCP Family Medicine; Visit Provider Nurse Practitioner Women's Health | DX: R30.0 Dysuria (principal) | CPT/HCPCS: 87077; 87086; 87186 ==

== ENCOUNTER → 2021-11-28 02:39 | Outpatient (CLI) | payer MEDICAID, SELFPAY ==
--- NOTE | 2021-11-28 17:30 | DI.MAMMO_ITS ---
Exam(s) MAMMO SCREENING EXAM: MAMMO SCREENING CLINICAL HISTORY: screening TECHNIQUE: Bilateral full field digital CC and MLO mammographic images were obtained with 3D tomosyn thesis and utilizing computer aided detection (CAD). COMPARISON: Available for comparison. FINDINGS: Masses/Architectural Distortion: None seen. There is a stable area of asymmetry in the central left b reast on the CC view. Microcalcifications: No suspicious pleomorphic-type are seen. Skin Thickening/Nipple Retraction: None. IMPRESSION: 1. No significant interval change with no specific features of malignancy noted. 2. Unless there is more urgent need, screening mammography is recommended, as per [place] [employer] guidelines. BI-RADS Category 1 - Negative Breast Density - Category C - Heterogeneously dense Breast density category C or D implies that the patient has dense breast tissue. Dense breast tissue is very common and is not abnormal but dense breast tissue can make it harder to find cancer on a ma mmogram. Also, dense breast tissue may increase their breast cancer risk. This information about the result of the mammogram report was provided to the patient to raise their awareness. Use this report when you speak with the patient about their risks for breast cancer, which includes their family hist ory. At that time, you may recommend for more screening tests (Ultrasound or MRI) as they might be us eful based on their risk. A negative radiographic report should not delay biopsy if a dominant or clinically suspicious mass is present. Up to ten percent of cancers are not identified on mammography. A negative report may reinforce clinical impression. Adenosis and dense breasts may obscure an underlying neoplasm. False positive reports average 6 to 10%. Patient will receive a letter notifying them of these results.
== END ==
PROVIDERS: PCP Family Medicine; Visit Provider Nurse Practitioner Women's Health
DX: Z12.31 Encounter for screening mammogram for malignant neoplasm of breast (principal); R92.8 Other abnormal and inconclusive findings on diagnostic imaging of breast
CPT/HCPCS: 77063; 77067

== ENCOUNTER 2022-05-29 09:26 | Outpatient (CLI) | payer MEDICAID, SELFPAY ==
[2022-05-29 12:53] LABS: TSH (W/Ref FT4) 1.09 uIU/mL (0.36-3.74)
== END 2022-05-29 09:27 | disposition home or self-care (01) ==
LOC: LOS 09:26
PROVIDERS: PCP Family Medicine; Referring Provider Family Medicine; Visit Provider Family Medicine
DX: E03.9 Hypothyroidism, unspecified (principal); R53.83 Other fatigue
CPT/HCPCS: 36415; 84443

== ENCOUNTER → 2022-12-16 16:46 | Outpatient (CLI) | payer BC, SELFPAY ==
--- NOTE | 2022-12-16 10:15 | DI.MAMMO_ITS ---
Exam(s) MAMMO SCREENING EXAM: MAMMO SCREENING CLINICAL HISTORY: screening,z12.39 TECHNIQUE: Bilateral full field digital CC and MLO mammographic images were obtained with 3D tomosyn thesis and utilizing computer aided detection (CAD). COMPARISON: Available for comparison. FINDINGS: Masses/Architectural Distortion: None seen. Microcalcifications: No suspicious pleomorphic-type are seen. Skin Thickening/Nipple Retraction: None. IMPRESSION: 1. No significant interval change with no specific features of malignancy noted. 2. Unless there is more urgent need, screening mammography is recommended, as per [place] [employer] guidelines. BI-RADS Category 1 - Negative Breast Density - Category B - Scattered areas of fibroglandular density Breast density category C or D implies that the patient has dense breast tissue. Dense breast tissue is very common and is not abnormal but dense breast tissue can make it harder to find cancer on a ma mmogram. Also, dense breast tissue may increase their breast cancer risk. This information about the result of the mammogram report was provided to the patient to raise their awareness. Use this report when you speak with the patient about their risks for breast cancer, which includes their family hist ory. At that time, you may recommend for more screening tests (Ultrasound or MRI) as they might be us eful based on their risk. A negative radiographic report should not delay biopsy if a dominant or clinically suspicious mass is present. Up to ten percent of cancers are not identified on mammography. A negative report may reinforce clinical impression. Adenosis and dense breasts may obscure an underlying neoplasm. False positive reports average 6 to 10%. Patient will receive a letter notifying them of these results.
== END ==
PROVIDERS: PCP Family Medicine; Visit Provider Nurse Practitioner Women's Health
DX: Z12.31 Encounter for screening mammogram for malignant neoplasm of breast (principal)
CPT/HCPCS: 77063; 77067

== ENCOUNTER 2023-09-22 13:43 | Outpatient (CLI) | payer BC, SELFPAY ==
[2023-09-22 13:23] LABS: ESR 5 mm/hr (0-30)
[2023-09-22 13:47] LABS: Uric Acid 6.8 mg/dL (2.6-6.0)
--- OUTSIDE RECORDS SUMMARY | 2023-09-22 13:52 | XMS_ITS | Encounter Summary ---
Author Organization [facility] Address [address] [place] [address] Care Team Providers Care Rn Bariatric Name Role Phone Cynthia Ogden MD Primary Care Provider Unavailable Encounter Details Date Type Department Care Team (Latest Contact Info) Description 03/04/2023 Travel Social History Tobacco Use Types Packs/Day Years Used Date Smoking Tobacco: Never Smokeless Tobacco: Never Alcohol Use Standard Drinks/Week Comments Yes 0 (1 standard drink = 0.6 oz pur e alcohol) 1-2 drinks per week Interpersonal Safety Answer Date Record ed Physically Hurt Never 10/03/2019 Verbally Threaten Not on file 10/03/2019 Sex and Gender Information Value Date Recorded Sex Assigned at Not on file Gender Identity Female 11/08/2022 11:40 EDT Sexual Orientation Not on file documented as of this encounter Functional Status Functional Status Response Date of Assess ment Are you deaf or do you have serious difficulty h earing? No 03/04/2023 documented as of this encounter Plan of Treatment Upcoming Encounters Date Type Department Care Team (Late st Contact Info) Description 01/24/2024 14:40 EST Appointment [facility] [id number] [place] [address] documented as of this encounter Visit Diagnoses Not on filedocumented in this encounter Care Teams Rn Bariatric Relationship Specialty Start Date End Date Cynthia Ogden MD [address] [place] [address] PCP - General Family Medicine - Primary Care 11/01/22 documented as of this encounter
--- OUTSIDE RECORDS SUMMARY | 2023-09-22 13:52 | XMS_ITS | Encounter Summary ---
Author Organization [facility] Address [address] [place] [address] Care Team Providers Care Logistics Team Leader Name Role Phone Cynthia Ogden MD Primary Care Provider Unavailable Reason for Referral * (Routine/Next Available) - Receiving Office to Obtain Authorization Specialty Diagnoses / Procedures Referred By Contac t Referred To Contact Procedures MR OUTSIDE IMAGES THORACIC SPINE Unknown, ProviderMD Referral ID Status Reason Start Date Expiration Date Visits Requested Visits Authorized [id number] Receiving Office to Obtain Authorization 06/05/2023 1 1 Reason for Visit * (Routine/Next Available) - Receiving Office to Obtain Authorization Specialty Diagnoses / Procedures Referred By Contac t Referred To Contact Procedures MR OUTSIDE IMAGES THORACIC SPINE Unknown, ProviderMD Referral ID Status Reason Start Date Expiration Date Visits Requested Visits Authorized [id number] Receiving Office to Obtain Authorization 06/05/2023 1 1 Encounter Details Date Type Department Care Team (Latest Contact Info) Description 02/17/2023 - 02/17/2023 23:59 EST Hospital [facility] [place] Discharge Disposition: Home or Self Care Social History Tobacco Use Types Packs/Day Years [...] on file documented as of this encounter Discharge Disposition Disposition Code Departure Means Destination Home or Self Care documented in this encounter Plan of Treatment Upcoming Encounters Date Type Department Care Team (Late st Contact Info) Description 01/24/2024 14:40 EST Appointment Sanjana Bruce [address] [place] [address] documented as of this encounter Procedures Procedure Name Priority Date/Time Associated Diagnosis Comments MR OUTSIDE IMAGES THORACIC SPINE Routine 02/17/2023 17:17 EST documented in this encounter Results * MR OUTSIDE IMAGES THORACIC SPINE (02/17/2023 17:17 EST) Narrative 06/05/2023 17:17 EDT This is a non-reportable exam. Provider Unknown MD [facility] OTHER IMAGING OR DERABLES documented in this encounter Visit Diagnoses Not on filedocumented in this encounter Care Teams Logistics Team Leader Relationship Specialty Start Date End Date Cynthia Ogden MD [address] [place] [address] PCP - General Family Medicine - Primary Care 11/01/22 documented as of this encounter
--- OUTSIDE RECORDS SUMMARY | 2023-09-22 13:52 | XMS_ITS | Encounter Summary ---
Author Organization [facility] Address [address] [place] [address] Care Team Providers Care Business Project Analyst Name Role Phone Cynthia Ogden MD Primary Care Provider Unavailable Encounter Details Date Type Department Care Team (Latest Contact Info) Description 01/28/2023 Travel Social History Tobacco Use Types Packs/Day [...] on file documented as of this encounter Plan of Treatment Upcoming Encounters Date Type Department Care Team (Late st Contact Info) Description 01/24/2024 14:40 EST Appointment Sanjana Bruce [id number] [place], [place] [id number] documented as of this encounter Visit Diagnoses Not on filedocumented in this encounter Care Teams Business Project Analyst Relationship Specialty Start Date End Date Cynthia Ogden MD [address] [place] [address] PCP - General Family Medicine - Primary Care 11/01/22 documented as of this encounter
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
--- OUTSIDE RECORDS SUMMARY | 2023-09-22 13:52 | XMS_ITS | Clinical Summary ---
Author Organization [facility] Address [address] [place] [address] Care Team Providers Care Art Handler Name Role Phone Cynthia Ogden MD Primary Care Provider Unavailable Allergies Active Allergy Reactions Criticality Noted Date Comments Oxycodone-Acetaminophen 01/28/2023 Facial swelling, itchy Medications No known medications Social History Tobacco Use Types Packs/Day Years [...] 11:40 EDT Sexual Orientation Not on file Obstetrics History Last Filed Vital Signs Vital Sign Reading Time Taken Comments Blood Pressure 113/83 03/05/2023 0600 EST Pulse 80 03/05/2023 0600 EST Temperature 36.4 ??C (97.5 ??F) 03/05/2023 0228 EST Respiratory Rate 18 03/05/2023 0600 EST Oxygen Saturation 100% 03/05/2023 0600 EST Inhaled Oxygen Concentration - - Weight 62.6 kg (138 lb) 03/04/2023 1809 EST Height 152.4 cm (5') 03/04/2023 1809 EST Body Mass Index 26.95 03/04/2023 1809 EST Plan of Treatment Upcoming Encounters Date Type Department Care Team (Late st Contact Info) Description 01/24/2024 14:40 EST Appointment Sanjana Bruce [address] [place] [address] Health Maintenance Due Date Last Done Comments Hepatitis C Screen 1970 Hepatitis B Vaccine (1 of 3 - 19+ 3-dose series) 09/18 COVID-19 Vaccine (2022- season) 2022 Jena Mancia Personal/Family Self 1970 [address] [facility] [address] [place] [address] Jena Mancia Personal/Family Self 1970 [address] [facility] [address] [place] [address] Jena Mancia Personal/Family Self 1970 [address] [facility] [address] [place] [address] Jena Mancia Personal/Family Self [address] [place] [address] Hina Manciaara Lizzette Personal/Family Self [address] [place] [address] Care Teams Art Handler Relationship Specialty Start Date End Date Cynthia Ogden MD [address] [place] [address] PCP - General Family Medicine - Primary Care 11/01/22
--- OUTSIDE RECORDS SUMMARY | 2023-09-22 13:52 | XMS_ITS | Encounter Summary ---
Author Organization [facility] Address [address] [place] [address] Care Team Providers Care Supervisor Litharge Name Role Phone Cynthia Ogden MD Primary Care Provider Unavailable Encounter Details Date Type Department Care Team (Late st Contact Info) Description 11/08/2022 11:45 EDT Phlebotomy Only [facility] - [address] [address] Data Entry Technician, [facility] Screening examination for pulmonary tuberculosis; Immunity status testing Social History Tobacco Use Types Packs/Day Years Used Date Smoking Tobacco: Never Assessed Interpersonal Safety Answer Date Record ed Physically [...] Description 01/24/2024 14:40 EST Appointment Sanjana Bruce [id number] [place], [place] [id number] documented as of this encounter Procedures Procedure Name Priority Date/Time Associated Diagnosis Comments QUANTIFERON MITOGEN (PERFORMABLE) Routine 11/08/2022 12:19 EDT Screening examination for pulmonary tuberculosis QUANTIFERON TB2 (PERFORMABLE) Routine 11/08/2022 12:19 EDT Screening examination for pulmonary tuberculosis QUANTIFERON TB1 (PERFORMABLE) Routine 11/08/2022 12:19 EDT Screening examination for pulmonary tuberculosis QUANTIFERON NIL (PERFORMABLE) Routine 11/08/2022 12:19 EDT Screening examination for pulmonary tuberculosis QUANTIFERON INTERPRETATION (PERFORMABLE) Today 11/08/2022 12:19 EDT Screening examination for pulmonary tuberculosis QUANTIFERON TB GOLD PLUS Routine 11/08/2022 12:19 EDT Screening examination for pulmonary tuberculosis VARICELLA IGG ANTIBODY Routine 12:19 EDT Immunity status testing documented in this encounter Results * QUANTIFERON INTERPRETATION (PERFORMABLE) (11/08/2022 12:19 EDT) Quantiferon Interpretation Negative Negative 11/11/2022 12:02 EDT [facility] Comment:No interferon-gamma response to M. tuberculosis antigens was detected. ??Infection with M. tuberculosis is unlikely. A single negative result does not exclude infection with M. tuberculosis. ??In patients at high risk for M. tuberculosis infection, a second test should be considered. TB1 Ag minus Nil 0.04 IU/ml 11/12/19 12:02 EDT [facility] TB2 Ag minus Nil 0.06 IU/mL 11/12/19 12:02 EDT [facility] Blood VENOUS BLOOD / Unknown Venipuncture / Unknown 11/08/2022 12:19 EDT 11/11/2022 11:11 EDT Narrative [facility] - 11/11/2022 12:02 EDT Results were obtained with the [employer] QuantiFERON-TB Gold Plus CLIA. New platform in use 11/08/2020 Johnny Garcia MD IMMUNOLOGY AND SEROLOGY ORDERABLES [facility] [address] [place] [address] * QUANTIFERON MITOGEN (PERFORMABLE) (11/08/2022 12:19 EDT) Blood VENOUS BLOOD / Unknown Venipuncture / Unknown 11/08/2022 12:19 EDT 11/08/2022 12:19 EDT Johnny Garcia MD IMMUNOLOGY AND SEROLOGY ORDERABLES Performing Organization Address [facility] Co de Phone Number [facility] [address] [place] [address] * QUANTIFERON TB2 (PERFORMABLE) (11/08/2022 12:19 EDT) Blood VENOUS BLOOD / Unknown Venipuncture / Unknown 11/08/2022 12:19 EDT 11/08/2022 12:19 EDT Johnny Garcia MD IMMUNOLOGY AND SEROLOGY ORDERABLES Performing Organization Address [facility] Co de Phone Number [facility] [address] [place] [address] * QUANTIFERON TB1 (PERFORMABLE) (11/08/2022 12:19 EDT) Blood VENOUS BLOOD / Unknown Venipuncture / Unknown 11/08/2022 12:19 EDT 11/08/2022 12:19 EDT Johnny Garcia MD IMMUNOLOGY AND SEROLOGY ORDERABLES Performing Organization Address [facility] Co de Phone Number [facility] [address] [place] [address] * QUANTIFERON NIL (PERFORMABLE) (11/08/2022 12:19 EDT) Blood VENOUS BLOOD / Unknown Venipuncture / Unknown 11/08/2022 12:19 EDT 11/08/2022 12:19 EDT Johnny Garcia MD IMMUNOLOGY AND SEROLOGY ORDERABLES Performing Organization Address [facility] Co de Phone Number [facility] [address] [place] [address] * VARICELLA IGG ANTIBODY (11/08/2022 12:19 EDT) Varicella IgG Ab Positive See Note 11/08/2022 14:43 EDT [facility] Comment:Presence of detectab le Varicella Zoster virus IgG antibodies. Blood VENOUS BLOOD / Unknown Venipuncture / Unknown 11/08/2022 12:19 EDT 11/08/2022 12:19 EDT Johnny Garcia MD IMMUNOLOGY AND SEROLOGY ORDERABLES [facility] [address] [place] [address] documented in this encounter Visit Diagnoses Diagnosis Screening examination for pulmonary tuberculosis Immunity status testing Antibody response examination documented in this encounter Care Teams Supervisor Litharge Relationship Specialty Start Date End Date Cynthia Ogden MD [address] [place] [address] [place] [address] PCP - General Family Medicine - Primary Care 11/01/22 documented as of this encounter
--- OUTSIDE RECORDS SUMMARY | 2023-09-22 13:52 | XMS_ITS | Referral Summary ---
Author Organization [facility] Address [address] [place] [address] Care Team Providers Care Farmworker Cranberry Name Role Phone Cynthia Ogden MD Primary [...] 11:40 EDT Sexual Orientation Not on file Last Filed Vital Signs Vital Sign Reading [...] Body Mass Index 26.95 03/04/2023 1809 EST Functional Status Functional Status Response Date of Assess ment Are you deaf or do you have serious difficulty h earing? No 03/04/2023 Plan of Treatment Upcoming Encounters Date Type Department Care Team (Late st Contact Info) Description 01/24/2024 14:40 EST Appointment Sanjana Bruce [id number] [place] [address] Jena Mancia Personal/Family Self 1970 [address] [facility] [address] [place] [phone] Jena Mancia Personal/Family Self 1970 [address] [facility] [address] [place] [phone] Jena Mancia Personal/Family Self 1970 [address] [facility] [address] [place] [phone] Jena Mancia Personal/Family Self 1970 [address] [facility] [address] [place] [phone] Jena Mancia Personal/Family Self [address] [place] [phone] Care Teams Farmworker Cranberry Relationship Specialty Start Date End Date Cynthia Ogden MD [address] [place] [address] PCP - General Family Medicine - Primary Care 11/01/22
--- OUTSIDE RECORDS SUMMARY | 2023-09-22 13:52 | XMS_ITS | Encounter Summary ---
Author Organization [facility] Address [address] [place] [address] Care Team Providers Care Leadership Development Instructor Name Role Phone Cynthia Ogden MD Primary Care Provider Unavailable Encounter Details Date Type Department Care Team (Latest Contact Info) Description 03/04/2023 17:43 EST - 03/04/2023 17:44 EST Hospital Encounter [facility] - [address] [address] Discharge Disposition: ED Dismiss - Diverted Elsewhere Social History Tobacco Use Types Packs/Day Years [...] No 03/04/2023 documented as of this encounter Discharge Disposition Disposition Code Departure Means Destination Comment s ED Dismiss - Diverted Elsewhere documented in this encounter Plan of Treatment Upcoming Encounters Date Type Department Care Team (Late st Contact Info) Description 01/24/2024 14:40 EST Appointment [address] [address] documented as of this encounter Visit Diagnoses Not on filedocumented in this encounter Care Teams Leadership Development Instructor Relationship Specialty Start Date End Date Cynthia Ogden MD [address] [place] [address] PCP - General Family Medicine - Primary Care 11/01/22 documented as of this encounter
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
--- OUTSIDE RECORDS SUMMARY | 2023-09-22 13:52 | XMS_ITS | Encounter Summary ---
Author Organization [facility] Address [address] [place] [address] Care Team Providers Care Gut Snatcher Name Role Phone Cynthia Ogden MD Primary Care Provider Unavailable Reason for Referral * (Routine/Next Available) - Receiving Office to Obtain Authorization Specialty Diagnoses / Procedures Referred By Contac t Referred To Contact Procedures MA OUTSIDE IMAGES MAMMO SCREENING Imaging, External Referral ID Status Reason Start Date Expiration Date Visits Requested Visits Authorized [id number] Receiving Office to Obtain Authorization 05/08/2023 1 1 Reason for Visit * (Routine/Next Available) - Receiving Office to Obtain Authorization Specialty Diagnoses / Procedures Referred By Contac t Referred To Contact Procedures MA OUTSIDE IMAGES MAMMO SCREENING Imaging, External Referral ID Status Reason Start Date Expiration Date Visits Requested Visits Authorized [id number] Receiving Office to Obtain Authorization 05/08/2023 1 1 Encounter Details Date Type Department Care Team (Latest Contact Info) Description 12/16/2022 - 12/16/2022 23:59 EDT Hospital Encounter [facility] Secondary Reads [place] Discharge Disposition: Home or [...] Upcoming Encounters Date Type Department Care Team ( st Contact Info) Description 01/24/2024 14:40 EST Appointment [facility] [address] [place] [address] documented as of this encounter Procedures Procedure Name Priority Date/Time Associated Diagnosis Comments MA OUTSIDE IMAGES MAMMO SCREENING Routine 12/16/2022 15:01 EDT documented in this encounter Results * MA OUTSIDE IMAGES MAMMO SCREENING (12/16/2022 15:01 EDT) Narrative 05/08/2023 15:01 EST This is a non-reportable exam. External Imaging IMG OTHER IMAGING OR DERABLES documented in this encounter Visit Diagnoses Not on filedocumented in this encounter Care Teams Gut Snatcher Relationship Specialty Start Date End Date Cynthia Ogden MD [address] [facility] [place] [address] PCP - General Family Medicine - Primary Care 11/01/22 documented as of this encounter
--- OUTSIDE RECORDS SUMMARY | 2023-09-22 13:53 | XMS_ITS | Encounter Summary ---
Author Organization [facility] Address [address] [place] [address] Care Team Providers Care Electronic System Engineer Name Role Phone Deirdre Sharp MD Primary Care Provider [phone] Cynthia Ogden MD Primary Care Provider Unavailable Encounter Details Date Type Department Care Team (Late st Contact Info) Description 02/21/2021 Lab Requisition [facility] Pathology & Laboratory Medicine - [facility] [address] [place] [address] Madiha Mckay MD [address] [place] [address] [place], [place] [id number] Encounter for other general examination Social History Tobacco Use Types Packs/Day Years [...] Description 01/24/2024 14:40 EST Appointment Sanjana Bruce [address] [place] [address] documented as of this encounter Procedures Procedure Name Priority Date/Time Associated Diagnosis Comments SURGICAL PATHOLOGY Today 02/21/2021 10 :06 EST Encounter for other general examination documented in this encounter Results * SURGICAL PATHOLOGY (02/21/2021 10:06 EST) Note to Patient The following pathology results have been interpreted by your pathologist and may be available to you before your health provider has had the opportunity to review them. Please allow time for your provider to receive these results and explore management options, if applicable. 02/28/2021 13:46 [facility] Final Diagnosis A. GALLBLADDER, CHOLECYSTECTOMY: - Gallbladder mucosa with cholesterolosis. - Cholelithiasis. 02/28/2021 13:46 [facility] Attestation There was significant resident/fellow involvement in the diagnostic evaluation of this case. By the signature below, the attending physician certifies that they have personally conducted a gross and/or microscopic examination of the described specimens and rendered or confirmed the above diagnosis. 02/28/2021 13:46 [facility] at 1346 Clinical History Biliary colic 02/28/2021 13:46 [facility] Gross Description A. Received in formalin labelled with proper patient identification (initials W, B) and gallbladder is an intact gallbladder and attached cystic duct, 7.5 x 3.4 x 2.8 cm. The serosa is smooth cronin green. An attached periductal lymph node is not identified. The cystic duct lumen contains friable green-black calculi aggregating 0.7 cm which obstruct the lumen. The gallbladder lumen contains a large amount of green-black bile. The mucosa is velvety green and shows minimal focal cholesterol streaking and few cholesterol polyps up to 0.3 cm in greatest dimension. The gallbladder wall is without areas of induration. Commercial Review Appraiser sections are submitted in A1 to include the en face cystic duct margin and 2 sections from the gallbladder wall. MERCEDEZ DUFFY(ASCP) 02/26/2021 10:17 02/28/2021 13:46 [facility] Resident/David w: Gasper Patrick MD 02/28/2021 13:46 [facility] Performing Lab [email or web address] LAB 02/28/2021 13:46 [facility] Scanned Images 02/28/2021 13:46 [facility] Tissue ENTIRE GALLBLADDER / Unknown 02/21/2021 10:06 EST 02/21/2021 16:42 EST Madiha Mckay MD PATHOLOGY ORDERLizzette FIGUEROA [facility] [address] [place] [address] documented in this encounter Visit Diagnoses Diagnosis Encounter for other general examination documented in this encounter Care Teams Electronic System Engineer Relationship Specialty Start Date End Date Deirdre Sharp MD [address] [place] [address] PCP - General 09/05/11 10/31/22 Cynthia Ogden MD [address] [place] [address] PCP - General Family Medicine - Primary Care 11/01/22 documented as of this encounter
--- OUTSIDE RECORDS SUMMARY | 2023-09-22 13:53 | XMS_ITS | Encounter Summary ---
Author Organization [facility] Address [address] [place] [address] Care Team Providers Care Sole Assessor Name Role Phone Deirdre Sharp MD Primary Care Provider [phone] Cynthia Ogden MD Primary Care Provider Unavailable Encounter Details Date Type Department Care Team (Late st Contact Info) Description 06/19/2021 Lab Requisition [facility] Pathology & Laboratory Medicine - [facility] [address] [place] [address] Vicky Blount, DO [address] [place], [place] [id number] Encounter for other general examination Social History [...] Description 01/24/2024 14:40 EST Appointment Sanjana Bruce [address] [place] [address] documented as of this encounter Procedures Procedure Name Priority Date/Time Associated Diagnosis Comments SURGICAL PATHOLOGY Today 06/19/2021 11 :17 EDT Encounter for other general examination documented in this encounter Results * SURGICAL PATHOLOGY (06/19/2021 11:17 EDT) Note to Patient The following pathology results have been interpreted by your pathologist and may be available to you before your health provider has had the opportunity to review them. Please allow time for your provider to receive these results and explore management options, if applicable. 06/20/2021 17:17 [facility] Final Diagnosis A. COLON, 80 CMS, BIOPSY: - Colonic mucosa with no significant diagnostic abnormalities. B. COLON, 60 CMS, BIOPSY: - Colonic mucosa with no significant diagnostic abnormalities. C. RECTUM, BIOPSY: - Rectal mucosa with no significant diagnostic abnormalities. 06/20/2021 17:17 [facility] Attestation By the signature below, the attending physician certifies that they have 1) personally conducted a gross and/or microscopic examination of the described specimen(s), and/or personally interpreted the results of laboratory testing of the described specimen(s), and 2) personally rendered or confirmed the above diagnosis. 06/20/2021 17:17 [facility] at 1717 Clinical History History colon polyps; family history colon cancer 06/20/2021 17:17 [facility] Gross Description A. Received in formalin labelled with proper patient identification (initials W, B) and colon Bx @ 80 cm is a ortega tissue, 0.3 x 0.2 x 0.1 cm. Entirely submitted in A1. B. Received in formalin labelled with proper patient identification (initials W, B) and colon Bx @ 60 cm? is a ortega tissue, 0.2 x 0.15 x 0.1 cm. Entirely submitted in B. C. Received in formalin labelled with proper patient identification (initials W, B) and rectal Bx is a ortega-brown tissue, 0.3 x 0.1 x 0.1 cm. Entirely submitted in C1. MERCEDEZ DUFFY(ASCP) 06/20/2021 7:48 06/20/2021 17:17 [facility] Performing Lab [facility] 06/20/2021 17:17 [facility] Scanned Images 06/20/2021 17:17 [facility] Tissue SPECIMEN FROM RECTUM / Unknown 06/19/2021 11:17 EDT 06/19/2021 16:49 EDT Tissue specimen (specimen) COLON STRUCTURE / Unknown 06/19/2021 11:17 EDT 06/19/2021 16:49 EDT Tissue specimen (specimen) SPECIMEN FROM RECTUM / Unknown 06/19/2021 11:17 EDT 06/19/2021 16:49 EDT Vicky Blount DO PATHOLOGY ORDERABLES [facility] [address] [place] [address] documented in this encounter Visit Diagnoses Diagnosis Encounter for other general examination documented in this encounter Care Teams Sole Assessor Relationship Specialty Start Date End Date Deirdre Sharp MD [address] [place] [address] PCP - General 09/05/11 10/31/22 Cynthia Ogden MD [address] [place] [address] PCP - General Family Medicine - Primary Care 11/01/22 documented as of this encounter
--- OUTSIDE RECORDS SUMMARY | 2023-09-22 13:53 | XMS_ITS | Encounter Summary ---
Author Organization [facility] Address [address] [place] [address] Care Team Providers Care Teleservices Representative Name Role Phone Unavailable Primary Care Provider Unavailabl e Encounter Details Date Type Department Care Team (Late st Contact Info) Description 01/01/2009 Orders Only [address] [address] Jarrett Harkins MD [address] [place], [place] [id number] Social History Tobacco Use Types Packs/Day Years Used Date Smoking Tobacco: Never Assessed Sex and Gender Information Value Date Recorded Sex Assigned at Not on file Gender Identity Female 11/08/2022 11:40 EDT Sexual Orientation Not on file documented as of this encounter Plan of Treatment Upcoming Encounters Date Type Department Care Team (Late st Contact Info) Description 01/24/2024 14:40 EST Appointment Sanjana Bruce [facility] [address] [place] [address] documented as of this encounter Procedures Procedure Name Priority Date/Time Associated Diagnosis Comments SURGICAL PATHOLOGY Routine 01/01/2009 0 :00 EDT documented in this encounter Results * SURGICAL PATHOLOGY (01/01/2009 0:00 EDT) Pathology Report: SURGICAL PATHOLOGY REPORT ? Reports generated via electronic interface contain original data; ? however they are lacking the format of the original report. ? Caution should be taken when reading/interpreti ng unformatted reports. ? Name: ? JENA HUSTON ? Accession #: ? [id number] ? : ? 1970 (Age: 38) ??F ? Collect Date: ? 01/01/2009 ? Location: ? [facility] ? Receive Date: ? 01/02/2009 ? Provider: JARRETT HARKINS MD ? Copy to: AZALIA GRESSER MD ? Final Pathologic Diagnosis: ? Appendix, appendectomy: ? - Appendix with no specific pathologic features. ??See comment. ? Comment: ? The entire specimen was submitted and examined. ??(Dr. Norwood)/mms ? Document reviewed and electronically signed by: ? IVETH SULLIVAN MD ? Report ??Date: 01/04/2009 17:52 ? By the signature above, the attending physician certifies that he/she has ? personally conducted a gross and/or microscopic examination of the described ? specimens and rendered or confirmed the above diagnosis. ? Specimen(s) Received: ? Appendix ? Clinical History: ? Abdominal pain, WBC 16K, and RLQ peritoneal sign ? Gross Description: ? Received in formalin labelled GavinoJena and appendix is a 6.0 cm in length by 0.7 cm in diameter vermiform appendix, which includes a moderate ?? amount of attached mesoappendix and is received with the proximal margin stapled closed. ??The proximal margin is black inked. ??The serosa is smooth, light ? ortega-white, and focally light brown at its mid portion. ??Sections reveal that the proximal appendiceal lumen is dilated, measuring up to 0.5 cm in diameter, and ?? the lumen contains fecal material; however, there are no fecaliths. ??The ? appendiceal mucosa and wall are light ortega-white, with the wall measuring 0.2 cm in average thickness with no discernible perforations. ??The entire appendix ? (except for the most proximal stapled aspect) is submitted as (A1) through (A3) from proximal to distal, respectively (A1 contains section adjacent to black ? inked surgical margin and also one of the sections in A1 is half a cross section of the appendix and A3 contains the longitudinally bisected distal end of the ?? appendix). ??(J. Tessitore)/ljn ? End of Report ? JOEL CARDENAS 01/01/2009 01/02/2009 16: 24 EST Jarrett Harkins MD PATHOLOGY ORDERABLES Performing Organization Address City/State/[facility] Co de Phone Number JOEL CARDENAS [address] [place] [address] documented in this encounter Visit Diagnoses Not on filedocumented in this encounter
--- OUTSIDE RECORDS SUMMARY | 2023-09-22 13:53 | XMS_ITS | Encounter Summary ---
Author Organization [facility] Address [address] [place] [address] Care Team Providers Care Computer Graphic Artist Name Role Phone Deirdre Sharp MD Primary Care Provider [phone] Encounter Details Date Type Department Care Team (Late st Contact Info) Description 01/02/2018 Results Only [facility] [phone] Sharif Perez MD [address] [place] [address] Social History Tobacco Use Types Packs/Day Years Used Date Smoking Tobacco: Never Assessed Sex and Gender Information Value Date Recorded Sex Assigned at Not on file Gender Identity Female 11/08/2022 11:40 EDT Sexual Orientation Not on file documented as of this encounter Plan of Treatment Upcoming Encounters Date Type Department Care Team (Late st Contact Info) Description 01/24/2024 14:40 EST Appointment Sanjana Bruce [id number] [place], [place] [address] documented as of this encounter Procedures Procedure Name Priority Date/Time Associated Diagnosis Comments PAP TEST- RESULT ONLY Routine 01/02/2018 0:00 EDT documented in this encounter Results * PAP TEST- RESULT ONLY (01/02/2018 0:00 EDT) Pathology Report: CYTOPATHOLOGY REPORT Reports generated via electronic interface contain original data; however they are lacking the format of the original report. Caution should be taken when reading/interpreti ng unformatted reports. Name: ? JENA HUSTON ? Accession #: ? [id number] ? : ? 1970 (Age: 47) ??F ?Collect Date: ? 01/02/2018 ? Location: ? [facility] ? Receive Date: ? 01/06/2018 ? Provider: SHARIF PEREZ MD Copy to: PAN HICKEY DO ? Final Report SPECIMEN ADEQUACY ? Satisfactory for Evaluation - transformation zone component absent GENERAL CATEGORIZATION ? Negative for Intraepithelial Lesion or Malignancy ?? Last Menstrual Period: 11/01/17 Specimen/Source: ??Pap Test, Cervix, ThinPrep Imaging System with manual evaluation Document reviewed and electronically signed by: ? JOHN Torres(ASCP) ? Report ??Date: 01/14/2018 15:01 HPV with Pap Test ? Date Ordered: ? 01/14/2018 ? Status: ?? Signed Out ?Date Complete: ? 01/17/2018 ? By: ??System Interface ? Date Reported: ? 01/17/2018 ? Interpretation RESULT: Negative for HPV. No E6 or E7 mRNA is detected from HPV types 16,18,31,33,35, 39,45,51,52,56,58, 59,66, and 68 by fire extinguisher sprinkler inspector mediated amplification. Comments Document reviewed and electronically signed by: ? System Interface ? Report date: 01/17/2018 By the signature above, the attending physician certifies that he/she has personally conducted a gross and/or microscopic examination of the described specimens and rendered or confirmed the above diagnosis. End of Report [facility] 01/02/2018 01/06/2018 Sharif Perez MD PATHOLOGY ORDERABLES [facility] [address] [place] [address] documented in this encounter Visit Diagnoses Not on filedocumented in this encounter Care Teams Computer Graphic Artist Relationship Specialty Start Date End Date Deirdre Sharp MD [address] [place], [place] [address] PCP - General 09/05/11 10/31/22 documented as of this encounter
--- OUTSIDE RECORDS SUMMARY | 2023-09-22 13:53 | XMS_ITS | Encounter Summary ---
Author Organization [facility] Address [address] [place] [address] Care Team Providers Care Greenhouse Specialist Name Role Phone Deirdre Sharp MD Primary Care Provider [phone] Cynthia Ogden MD Primary Care Provider Unavailable Encounter Details Date Type Department Care Team (Late st Contact Info) Description 2020 Lab Requisition [facility] Pathology & Laboratory Medicine - [facility] [address] [place] [address] Madalyn Gil, [facility] [address] [place] [address] [place] [address] Encounter for other general examination Social History [...] Description 01/24/2024 14:40 EST Appointment Sanjana Bruce [address] [place] [address] documented as of this encounter Procedures Procedure Name Priority Date/Time Associated Diagnosis Comments PAP TEST Today 09/15/2020 9:35 EDT Encounter for other general examination HPV DNA DETECTION WITH GENOTYPING, PCR Today 09/15/2020 9:35 EDT Encounter for other general examination documented in this encounter Results * HUMAN PAPILLOMAVIRUS (HPV) DETECTION-HIGH RISK TYPES (09/15/2020 9:35 EDT) HPV other High Risk types, PCR Negative Negative 09/28/2020 14:45 EDT [facility] Comment:No E6 or E7 mRNA is detected from HPV types 16,18,31,33,35,39,45,51,52,56,58,59,66, and 68 by dairy bacteriologist mediated amplification. Papanicolaou smear specimen (specimen) CERVIX UTERI STRUCTURE / Unknown 09/15/2020 9:35 EDT 09/27/2020 18:17 EDT Madalyn Gil MODEL MAKER SCALE MICROBIOLOGY - GENER AL ORDERABLES [facility] [address] [place] [address] * PAP TEST (09/15/2020 9:35 EDT) Specimens A. Cervix and/or Endocervix , ThinPrep Imaging System with Manual Evaluation 09/28/2020 14:45 [facility] Specimen Adequacy Satisfactory for Evaluation - transformation zone component absent 09/28/2020 14:45 [facility] General Categorization Negative for intraepithelial lesion or malignancy 09/28/2020 14:45 [facility] Attestation . 09/28/2020 14:45 [facility] at 1445 Clinical History See below 09/29/19 21 14:45 T [facility] HPV The result for the Human Papillomavirus (HPV) Detection-High Risk Types is Negative. No E6 or E7 mRNA is detected from HPV types 16,18,31,33,35,39 ,45,51,52,56,58,5 9,66, and 68 by dairy bacteriologist mediated amplification.Mandy ting was performed on specimen [id number] and was resulted on 09/28/2020 1436 EDT by MARIANA, LAB INSTRUMENT RESULTS IN 09/28/2020 14:45 EDT [facility] Performing Lab [facility] 09/28/2020 14:45 EDT [facility] Scanned Images 09/28/2020 14:45 EDT [facility] Papanicolaou smear specimen (specimen) CERVIX UTERI STRUCTURE / Unknown 09/15/2020 9:35 EDT 2020 12:40 EDT Madalyn Gil MODEL MAKER SCALE PATHOLOGY ORDERABLES [facility] [address] [place] [address] documented in this encounter Visit Diagnoses Diagnosis Encounter for other general examination documented in this encounter Care Teams Greenhouse Specialist Relationship Specialty Start Date End Date Deirdre Sharp MD [address] [place] [address] PCP - General 09/05/11 10/31/22 Cynthia Ogden MD [address] [place] [address] [place] [address] PCP - General Family Medicine - Primary Care 11/01/22 documented as of this encounter
--- OUTSIDE RECORDS SUMMARY | 2023-09-22 13:53 | XMS_ITS | Encounter Summary ---
Author Organization [facility] Address [address] [place] [address] Care Team Providers Care World Language Teacher Name Role Phone Unknown, Provider Primary Care Provider Encounter Details Date Type Department Care Team (Late st Contact Info) Description 01/19/2007 Results Only [facility] [address] [place] [address] Deirdre Merino MD [address] [place], [place] [address] Social History Tobacco Use Types Packs/Day Years Used Date Smoking Tobacco: Never Assessed Sex and Gender Information Value Date Recorded Sex Assigned at Not on file Gender Identity Female 11/08/2022 11:40 EDT Sexual Orientation Not on file documented as of this encounter Plan of Treatment Upcoming Encounters Date Type Department Care Team (Late st Contact Info) Description 01/24/2024 14:40 EST Appointment Sanjana Bruce [address] [id number] documented as of this encounter Procedures Procedure Name Priority Date/Time Associated Diagnosis Comments CYTOPATHOLOGY Routine 01/19/2007 0:00 EST documented in this encounter Results * CYTOPATHOLOGY (01/19/2007 0:00 EST) Pathology Report: CYTOPATHOLOGY REPORT Reports generated via electronic interface contain original data; however they are lacking the format of the original report. Caution should be taken when reading/interpreti ng unformatted reports. Name: ? JENA HUSTON ? Accession #: ? [id number] : ? 1970 (Age: 36) ??F ?Collect Date: ? 01/19/2007 Location: ? [facility] ? Receive Date: ? 01/20/2007 Provider: ?DEIRDRE MERINO MD Copy to: ? Specimen/Source: ?ThinPrep Pap Test, Cervix/Endocervix, processed on [employer] ThinPrep Imaging System, with manual evaluation Last Menstrual Period: ? unknown Hormonal/Contracep tive Status: ? Yes: Monessa Other: ? HPVA - HPV testing requested if ASC-US on the current ThinPrep Pap test. ? SPECIMEN ADEQUACY ? Satisfactory for Evaluation - transformation zone component present GENERAL CATEGORIZATION ? Negative for Intraepithelial Lesion or Malignancy ? Document reviewed and electronically signed by: ? JOHN Tavares(ASCP) ? Report Date: ??01/26/2007 12:08 End of Report JOEL CARDENAS 01/19/2007 01/20/2007 Deirdre Merino MD PATHOLOGY ORDERABLES JOEL CARDENAS [address] [place] [address] documented in this encounter Visit Diagnoses Not on filedocumented in this encounter Care Teams World Language Teacher Relationship Specialty Start Date End Date Unknown, Provider, PCP - General 01/04/09 09/04/11 documented as of this encounter
--- OUTSIDE RECORDS SUMMARY | 2023-09-22 13:53 | XMS_ITS | Encounter Summary ---
Author Organization [facility] Address [address] [place] [address] Care Team Providers Care Tobacco Conditioner Name Role Phone Deirdre Sharp MD Primary Care Provider Reason for Referral * (Routine/Next Available) - Receiving Office to Obtain Authorization Specialty Diagnoses / Procedures Referred By Contac t Referred To Contact Procedures MA OUTSIDE IMAGES MAMMO SCREENING Imaging, External Referral ID Status Reason Start Date Expiration Date Visits Requested Visits Authorized [id number] Receiving Office to Obtain Authorization 05/08/2023 1 1 Reason for Visit * (Routine/Next Available) - Receiving Office to Obtain Authorization Specialty Diagnoses / Procedures Referred By Contac t Referred To Contact Procedures MA OUTSIDE IMAGES MAMMO SCREENING Imaging, External Referral ID Status Reason Start Date Expiration Date Visits Requested Visits Authorized [id number] Receiving Office to Obtain Authorization 05/08/2023 1 1 Encounter Details Date Type Department Care Team (Latest Contact Info) Description 06/07/2020 - 06/07/2020 23:59 EDT Hospital Encounter [facility] Secondary [place] Discharge Disposition: Home or [...] 14:40 EST Appointment Sanjana [facility] [address] [place] [address] documented as of this encounter Procedures Procedure Name Priority Date/Time Associated Diagnosis Comments MA OUTSIDE IMAGES MAMMO SCREENING Routine 06/07/2020 15:02 EDT documented in this encounter Results * MA OUTSIDE IMAGES MAMMO SCREENING (06/07/2020 15:02 EDT) Narrative 05/08/2023 15:02 EST This is a non-reportable exam. External Imaging IMG OTHER IMAGING OR DERABLES documented in this encounter Visit Diagnoses Not on filedocumented in this encounter Care Teams Tobacco Conditioner Relationship Specialty Start Date End Date Deirdre Sharp MD [address] [place] [address] PCP - General 09/05/11 10/31/22 documented as of this encounter
--- OUTSIDE RECORDS SUMMARY | 2023-09-22 13:53 | XMS_ITS | Encounter Summary ---
Author Organization [facility] Address [address] [place] [address] Care Team Providers Care Mechanical Systems Designer Name Role Phone Cynthia Ogden MD Primary Care Provider Unavailable Encounter Details Date Type Department Care Team (Late st Contact Info) Description 11/07/2022 Orders Only [facility] [address] [address] Pooja Dumont RN Screening-pulmonary TB (Primary Dx); Immunity status testing Social History Tobacco Use [...] Description 01/24/2024 14:40 EST Appointment Sanjana Bruce [address] [place], [place] [address] documented as of this encounter Visit Diagnoses Diagnosis Screening-pulmonary TB- Primary Screening examination for pulmonary tuberculosis Immunity status testing Antibody response examination documented in this encounter Care Teams Mechanical Systems Designer Relationship Specialty Start Date End Date Cynthia Ogden MD [address] [place] [address] PCP - General Family Medicine - Primary Care 11/01/22 documented as of this encounter
--- OUTSIDE RECORDS SUMMARY | 2023-09-22 13:53 | XMS_ITS | Encounter Summary ---
Author Organization [facility] Address [address] [place] [address] Care Team Providers Care Quilting Machine Operator Name Role Phone Cynthia Ogden MD Primary Care Provider Unavailable Encounter Details Date Type Department Care Team (Late st Contact Info) Description 11/07/2022 Orders Only [facility] Health - [facility] [place] [address] [place] [id number] Marielos Gamble RN [address] [place] [address] Screening examination for pulmonary tuberculosis (Primary Dx); Immunity status testing Social History [...] Description 01/24/2024 14:40 EST Appointment Sanjana Bruce [place] [id number] [place] [address] documented as of this encounter Results * VARICELLA IGG ANTIBODY (11/08/2022 12:19 EDT) Varicella IgG Ab Positive See Note 11/08/2022 14:43 EDT [facility] Comment:Presence of detectab le Varicella Zoster virus IgG antibodies. Blood VENOUS BLOOD / Unknown Venipuncture / Unknown 11/08/2022 12:19 EDT 11/08/2022 12:19 EDT Johnny Garcia MD IMMUNOLOGY AND SEROLOGY ORDERABLES [facility] [address] [place] [address] documented in this encounter Visit Diagnoses Diagnosis Screening examination for pulmonary tuberculosis- Primary Immunity status testing Antibody response examination documented in this encounter Care Teams Quilting Machine Operator Relationship Specialty Start Date End Date Cynthia Ogden MD [address] [place] [address] [place] [address] PCP - General Family Medicine - Primary Care 11/01/22 documented as of this encounter
--- OUTSIDE RECORDS SUMMARY | 2023-09-22 13:53 | XMS_ITS | Encounter Summary ---
Author Organization [facility] Address [address] [place] [address] Care Team Providers Care Sales And Operations Trainee Name Role Phone Deirdre Sharp MD Primary Care Provider [phone] Cyntiha Ogden MD Primary Care Provider Unavailable Encounter Details Date Type Department Care Team (Late st Contact Info) Description 05/13/2021 Lab Requisition [facility] Pathology & Laboratory Medicine - [facility] [address] [place], [place] [address] Outr Resulting Lab, Provider Social History Tobacco Use Types Packs/Day Years [...] Description 01/24/2024 14:40 EST Appointment Sanjana Bruce [place] [id number] [place] [address] documented as of this encounter Procedures Procedure Name Priority Date/Time Associated Diagnosis Comments ZZCOVID-19 TEST [facility] PCR Today 05/12/2021 10:10 EST COVID-19 TESTING Routine 05/12/2021 10:1 0 EST documented in this encounter Results * COVID-19 TEST [facility] PCR (05/12/2021 10:10 EST) Swab 05/12/2021 10:1 0 EST 05/13/2021 16:20 EDT Provider Outr Resulting Lab MICROBIOLOGY - GENERAL ORDERABLES Performing Organization Address City/[facility]/ZIP Co de Phone Number [facility] [address] [place] [address] * COVID-19 TESTING (05/12/2021 10:10 EST) COVID-19 rt-PCR Result Negative Negative 05/14/2021 13:50 EDT [facility] Comment: This test has not been FDA cleared or approved. This test has been authorized by FDA under an EUA for use by authorized laboratories. This test has been authorized only for detection of nucleic acid from 2019-nCoV, not for any other viruses or pathogens. This test is only authorized for the duration of the declaration that circumstances exist justifying the authorization of emergency use of in vitro diagnostic tests for detection and/or diagnosis of 2019-nCoV under section 564(b)(1) of Act, 21 U.S.C ?? 360bbb-3(b) (1), unless the authorization is terminated or revoked sooner. Negative results do not preclude 2019-nCoV infection and should not be used as the sole basis for treatment or other patient management decisions. Negative results must be combined with clinical observations, patient history, and epidemiological information. Testing was performed using the siena SARS-CoV-2 assay ([employer] on the Siena 6800 System Performing Lab [facility] [address] [facility] 05/14/2021 13:50 EDT [facility] Swab 05/12/2021 10:1 0 EST 05/13/2021 16:20 EDT Provider Outr Resulting Lab MICROBIOLOGY - GENERAL ORDERABLES [facility] [address] [place] [address] documented in this encounter Visit Diagnoses Not on filedocumented in this encounter Care Teams Sales And Operations Trainee Relationship Specialty Start Date End Date Deirdre Sharp MD [address] [place] [address] PCP - General 09/05/11 10/31/22 Cynthia Ogden MD [address] [place] [address] PCP - General Family Medicine - Primary Care 11/01/22 documented as of this encounter
--- OUTSIDE RECORDS SUMMARY | 2023-09-22 13:53 | XMS_ITS | Encounter Summary ---
Author Organization [facility] Address [address] [place] [address] Care Team Providers Care Money Laundering Investigator Name Role Phone Unknown, Provider Primary Care Provider Encounter Details Date Type Department Care Team (Late st Contact Info) Description 07/14/2000 Results Only [facility] - Maple conversion [address] [place] [address] [place] [address] Social History Tobacco Use Types Packs/Day Years Used Date Smoking Tobacco: Never Assessed Sex and Gender Information Value Date Recorded Sex Assigned at Not on file Gender Identity Female 11/08/2022 11:40 EDT Sexual Orientation Not on file documented as of this encounter Plan of Treatment Upcoming Encounters Date Type Department Care Team (Late st Contact Info) Description 01/24/2024 14:40 EST Appointment Sanjana Bruce [address] [phone] documented as of this encounter Procedures Procedure Name Priority Date/Time Associated Diagnosis Comments CYTOPATHOLOGY Routine 07/14/2000 0:00 EDT documented in this encounter Results * CYTOPATHOLOGY (07/14/2000 0:00 EDT) Pathology Report: CYTOPATHOLOGY REPORT Reports generated via electronic interface contain original data; however they are lacking the format of the original report. Caution should be taken when reading/interpreti ng unformatted reports. Name: ? JENA HUSTON ? Accession #: ? [id number] : ? 1970 (Age: 29) ??F ?Collect Date: ? 07/14/2000 Location: ? [facility] ? Receive Date: ? 07/16/2000 Provider: ?DEIRDRE ENGLEM Copy to: ? Specimen/Source: ?ThinPrep Pap Test, Cervix/Endocervix Last Menstrual Period: ? 08/29/99 Menstrual/Pregnanc y Status: ? Post ? SPECIMEN ADEQUACY ? Satisfactory for evaluation. GENERAL CATEGORIZATION ? Within Normal Limits ? Document reviewed and electronically signed by: ? JOHN Cedillo(ASCP) ? Report Date: ??07/17/2000 09:37 End of Report JOEL CARDENA[facility] 07/14/2000 07/16/2000 Deirdre Barrera CNM PATHOLOGY ORDERABLES [facility] [address] [place] [address] documented in this encounter Visit Diagnoses Not on filedocumented in this encounter Care Teams Money Laundering Investigator Relationship Specialty Start Date End Date Unknown, Provider, PCP - General 01/04/09 09/04/11 documented as of this encounter
--- OUTSIDE RECORDS SUMMARY | 2023-09-22 13:53 | XMS_ITS | Encounter Summary ---
Author Organization [facility] Address [address] [place] [address] Care Team Providers Care Junior Legal Secretary Name Role Phone Unknown, Provider Primary Care Provider Encounter Details Date Type Department Care Team (Late st Contact Info) Description 08/30/2011 Results Only [facility] Laboratory Services - [facility] [address] [place] [address] Barbara Britt MD [address] [place] [address] [place] [address] Social History Tobacco Use Types Packs/Day Years Used Date Smoking Tobacco: Never Assessed Sex and Gender Information Value Date Recorded Sex Assigned at Not on file Gender Identity Female 11/08/2022 11:40 EDT Sexual Orientation Not on file documented as of this encounter Plan of Treatment Upcoming Encounters Date Type Department Care Team (Late st Contact Info) Description 01/24/2024 14:40 EST Appointment [place] [phone] [place], [place] [phone] documented as of this encounter Procedures Procedure Name Priority Date/Time Associated Diagnosis Comments SURGICAL PATHOLOGY Routine 08/30/2011 0:00 EDT documented in this encounter Results * SURGICAL PATHOLOGY (08/30/2011 0:00 EDT) Pathology Report: SURGICAL PATHOLOGY REPORT Reports generated via electronic interface contain original data; however they are lacking the format of the original report. Caution should be taken when reading/interpreti ng unformatted reports. Name: ? JENA HUSTON A ? Accession #: ? [id number] ? : ? 1970 (Age: 40) ??F ? Collect Date: ? 08/30/2011 ? Location: ? [facility] ? Receive Date: ? 08/31/2011 ? Provider: BARBARA BRITT MD Copy to: AZALIA MERINO MD ? Final Pathologic Diagnosis: ? Endometrium, biopsy: - Inactive endometrium with tubal metaplasia. Document reviewed and electronically signed by: JORJE ANGLIN [facility] Report ??Date: 09/05/2011 15:15 By the signature above, the attending physician certifies that he/she has personally conducted a gross and/or microscopic examination of the described specimens and rendered or confirmed the above diagnosis. Specimen(s) Received: ? Endo bx Clinical History: ? AUB on OCPs Gross Description: ? Received in formalin labelled Gavino, Jena and endometrium are 2.5 x 2.0 x 0.5 cm aggregate of red-brown, hemorrhagic and ortega-clear mucinous material. ??The specimen is entirely submitted as (A1) and (A2) following filtration. ??([place]nie [place])/[facility] End of Report JOEL CARDENA[facility] 08/30/2011 08/31/2011 8:3 8 EDT Barbara Britt MD PATHOLOGY ORDERABLES [facility] [address] [place] [address] documented in this encounter Visit Diagnoses Not on filedocumented in this encounter Care Teams Junior Legal Secretary Relationship Specialty Start Date End Date Unknown, Provider, PCP - General 01/04/09 09/04/11 documented as of this encounter
--- OUTSIDE RECORDS SUMMARY | 2023-09-22 13:53 | XMS_ITS | Encounter Summary ---
Author Organization [facility] Address [address] [place] [address] Care Team Providers Care Software Quality Tester Name Role Phone Deirdre Sharp MD Primary Care Provider [phone] Encounter Details Date Type Department Care Team (Late st Contact Info) Description 08/29/2014 Results Only [facility] [phone] Inez Arreola, NURSERYPERSON [facility] [place] [address] Social History Tobacco Use Types Packs/Day Years Used Date Smoking Tobacco: Never Assessed Sex and Gender Information Value Date Recorded Sex Assigned at Not on file Gender Identity Female 11/08/2022 11:40 EDT Sexual Orientation Not on file documented as of this encounter Plan of Treatment Upcoming Encounters Date Type Department Care Team (Late st Contact Info) Description 01/24/2024 14:40 EST Appointment Sanjana Bruce [phone] [place], [place] [phone] documented as of this encounter Procedures Procedure Name Priority Date/Time Associated Diagnosis Comments PAP TEST- RESULT ONLY Routine 08/29/2014 0:00 EDT documented in this encounter Results * PAP TEST- RESULT ONLY (08/29/2014 0:00 EDT) Pathology Report: CYTOPATHOLOGY REPORT Reports generated via electronic interface contain original data; however they are lacking the format of the original report. Caution should be taken when reading/interpreti ng unformatted reports. Name: ? JENA HUSTON ? Accession #: ? [id number] ? : ? 1970 (Age: 43) ??F ?Collect Date: ? 08/29/2014 ? Location: ? [facility] ? Receive Date: ? 08/30/2014 ? Provider: INEZ ARREOLA NURSERYPERSON Copy to: ? Final Report SPECIMEN ADEQUACY ? Satisfactory for Evaluation - transformation zone component present GENERAL CATEGORIZATION ? Negative for Intraepithelial Lesion or Malignancy INTERPRETATION ? Reactive cellular changes associated with inflammation present (includes repair). Last Menstrual Period: 08/07/2014 Hormonal/Contracep tive status: Yes: Mononessa Specimen/Source: ??Pap Test, Cervix/Endocervix, ThinPrep Imaging System with manual evaluation Document reviewed and electronically signed by: ? NARENDRA NAVARRO MD ? Report ??Date: 09/13/2014 15:55 HPV with Pap Test ? Date Ordered: ? 09/13/2014 ? Status: ?? Signed Out ?Date Complete: ? 09/15/2014 ? By: ??System Interface ? Date Reported: ? 09/15/2014 ? Interpretation RESULT: Negative for HPV. No E6 or E7 mRNA is detected from HPV types 16,18,31,33,35, 39,45,51,52,56,58, 59,66, and 68 by cash applications representative mediated amplification. Comments Document reviewed and electronically signed by: ? System Interface ? Report date: 09/15/2014 By the signature above, the attending physician certifies that he/she has personally conducted a gross and/or microscopic examination of the described specimens and rendered or confirmed the above diagnosis. End of Report [facility] 08/29/2014 08/30/2014 Inez Arreola NURSERYPERSON PATHOLOGY ORDERABLES Performing Organization Address City/State/[facility] Co de Phone Number [facility] [address] [place] [address] documented in this encounter Visit Diagnoses Not on filedocumented in this encounter Care Teams Software Quality Tester Relationship Specialty Start Date End Date Deirdre Sharp MD [address] [place] [address] PCP - General 09/05/11 10/31/22 documented as of this encounter
--- OUTSIDE RECORDS SUMMARY | 2023-09-22 13:53 | XMS_ITS | Encounter Summary ---
Author Organization [facility] Address [address] [place] [address] Care Team Providers Care Mandarin Chinese Teacher Name Role Phone Unknown, Provider Primary Care Provider Encounter Details Date Type Department Care Team (Late st Contact Info) Description 06/05/2011 Results Only [facility] Laboratory Services - [facility] [address] [place], [place] [address] Deirdre Merino MD [address] [place], [place] [phone] Social History Tobacco Use Types Packs/Day Years Used Date Smoking Tobacco: Never Assessed Sex and Gender Information Value Date Recorded Sex Assigned at Not on file Gender Identity Female 11/08/2022 11:40 EDT Sexual Orientation Not on file documented as of this encounter Plan of Treatment Upcoming Encounters Date Type Department Care Team (Late st Contact Info) Description 01/24/2024 14:40 EST Appointment [facility] [address] [place], [place] [address] documented as of this encounter Procedures Procedure Name Priority Date/Time Associated Diagnosis Comments PAP TEST- RESULT ONLY Routine 06/05/2011 0:00 EDT documented in this encounter Results * PAP TEST- RESULT ONLY (06/05/2011 0:00 EDT) Pathology Report: CYTOPATHOLOGY REPORT Reports generated via electronic interface contain original data; however they are lacking the format of the original report. Caution should be taken when reading/interpreti ng unformatted reports. Name: ? ALEJANDRA HUSTONARA Lizzette ? Accession #: ? [id number] ? : ? 1970 (Age: 40) ??F ?Collect Date: ? 06/05/2011 ? Location: ? [facility] ? Receive Date: ? 06/06/2011 ? Provider: DEIRDRE MERINO MD Copy to: ? Final Report SPECIMEN ADEQUACY ? Satisfactory for Evaluation - transformation zone component present GENERAL CATEGORIZATION ? Negative for Intraepithelial Lesion or Malignancy ?? Last Menstural Period: 05/19/11 Hormonal/Contracep tive status: Yes: Mononessa Specimen/Source: ??Pap Test, Cervix/Endocervix, ThinPrep Imaging System with manual evaluation Document reviewed and electronically signed by: ? Erlin Hernandez, JOHN(ASCP) ? Report ??Date: 06/11/2011 11:04 HPV with Pap Test ? Date Ordered: ? 06/11/2011 ? Status: ?? Signed Out ?Date Complete: ? 06/13/2011 ? By: ??System Interface ? Date Reported: ? 06/13/2011 ? Interpretation RESULT: Negative for HPV. No E6 or E7 mRNA is detected from HPV types 16,18,31,33,35, 39,45,51,52,56,58, 59,66, and 68 by mechanical engineering manager mediated amplification. Comments Document reviewed and electronically signed by: ? System Interface ? Report date: 06/13/2011 By the signature above, the attending physician certifies that he/she has personally conducted a gross and/or microscopic examination of the described specimens and rendered or confirmed the above diagnosis. End of Report JOEL CARDENAS 06/05/2011 06/06/2011 Deirdre Merino MD PATHOLOGY ORDERABLES Performing Organization Address City/State/[facility] Co de Phone Number [facility] [address] [place] [address] documented in this encounter Visit Diagnoses Not on filedocumented in this encounter Care Teams Mandarin Chinese Teacher Relationship Specialty Start Date End Date Unknown, Provider, PCP - General 01/04/09 09/04/11 documented as of this encounter
--- OUTSIDE RECORDS SUMMARY | 2023-09-22 13:53 | XMS_ITS | Encounter Summary ---
Author Organization [facility] Address [address] [place] [address] Care Team Providers Care Gage Maker Name Role Phone Unavailable Primary Care Provider Unavailabl e Encounter Details Date Type Department Care Team (Late st Contact Info) Description 03/07/2008 Before PRISM Converted Visit (Maple) [facility] - Maple conversion [address] [place] [address] Deirdre Merino MD [address] [place], [place] [address] Social History Tobacco Use Types Packs/Day Years Used Date Smoking Tobacco: Never Assessed Sex and Gender Information Value Date Recorded Sex Assigned at Not on file Gender Identity Female 11/08/2022 11:40 EDT Sexual Orientation Not on file documented as of this encounter Plan of Treatment Upcoming Encounters Date Type Department Care Team (Late st Contact Info) Description 01/24/2024 14:40 EST Appointment Sanjana Bruce [phone] [place], [place] [phone] documented as of this encounter Procedures Procedure Name Priority Date/Time Associated Diagnosis Comments CYTOPATHOLOGY Routine 03/07/2008 0:00 EST documented in this encounter Results * CYTOPATHOLOGY (03/07/2008 0:00 EST) Pathology Report: CYTOPATHOLOGY REPORT ? Reports generated via electronic interface contain original data; ? however they are lacking the format of the original report. ? Caution should be taken when reading/interpreti ng unformatted reports. ? Name: ? JENA HUSTON ? Accession #: ? [id number] ? : ? 1970 (Age: 37) ??F ?Collect Date: ? 03/07/2008 ? Location: ? [facility] ? Receive Date: ? 03/09/2008 ? Provider: ?DEIRDRE MERINO MD ? Copy to: ? Specimen/Source: ?Pap Test, Cervix/Endocervix, ThinPrep Imaging System ? with manual evaluation ? Last Menstrual Period: ? 12/28/08 ? Hormonal/Contracep tive Status: ? Control Pills ? Other: ? HPVDX - HPV testing requested regardless of diagnosis on current ThinPrep Pap ?? test. ? SPECIMEN ADEQUACY ? Satisfactory for Evaluation ? - transformation zone component present ? GENERAL CATEGORIZATION ? Negative for Intraepithelial Lesion or Malignancy ? Document reviewed and electronically signed by: ? Hali Gill, CT(ASCP) ? Report Date: ??03/10/2008 08:15 ? End of Report ? JOEL CARDE[facility] 03/07/2008 03/09/2008 Deirdre Merino MD PATHOLOGY ORDERABLES [facility] [address] [place] [address] documented in this encounter Visit Diagnoses Not on filedocumented in this encounter
--- OUTSIDE RECORDS SUMMARY | 2023-09-22 13:53 | XMS_ITS | Encounter Summary ---
Author Organization [facility] Address [address] [place] [address] Care Team Providers Care Counter Molder Name Role Phone Deirdre Sharp MD Primary Care Provider [phone] Encounter Details Date Type Department Care Team (Late st Contact Info) Description 04/14/2017 Results Only [facility] [phone] Maddie Rodriguez MD [address] [place] [address] [place], [place] [address] Social History Tobacco Use Types Packs/Day Years Used Date Smoking Tobacco: Never Assessed Sex and Gender Information Value Date Recorded Sex Assigned at Not on file Gender Identity Female 11/08/2022 11:40 EDT Sexual Orientation Not on file documented as of this encounter Plan of Treatment Upcoming Encounters Date Type Department Care Team (Late st Contact Info) Description 01/24/2024 14:40 EST Appointment Sanjana Bruce [address] [phone] documented as of this encounter Procedures Procedure Name Priority Date/Time Associated Diagnosis Comments SURGICAL PATHOLOGY Routine 04/14/2017 8:21 EST documented in this encounter Results * SURGICAL PATHOLOGY (04/14/2017 8:21 EST) Pathology Report: SURGICAL PATHOLOGY REPORT Reports generated via electronic interface contain original data; however they are lacking the format of the original report. Caution should be taken when reading/interpret ing unformatted reports. Name: ? ROBEL, JENA A ? Accession #: ? [id number] ? : ? 1970 (Age: 46) ??F ? Collect Date: ? 04/14/2017 ? Location: ? [facility] ? Receive Date: ? 04/15/2017 ? Provider: MADDIE RODRIGUEZ MD Copy to: DIRK ARREOLA NP ? Final Pathologic Diagnosis: COLON, DESCENDING, POLYP, ENDOSCOPIC POLYPECTOMY: - Fragments of tubular adenoma. Document reviewed and electronically signed by: ROSY ODEN MD Report ??Date: 04/15/2017 16:40 By the signature above, the attending physician certifies that he/she has personally conducted a gross and/or microscopic examination of the described specimens and rendered or confirmed the above diagnosis. Specimen(s) Received: Descending colon polyp Clinical History: FHx of colon cancer Gross Description: ? Received in formalin labelled with proper patient identification (initials W, B) and descending colon polyp are three ortega tissues (0.6 x 0.4 x 0.2 cm, 0.3 x 0.2 x 0.1 cm, and 0.1 x 0.1 x 0.1 cm). Entirely submitted in 1. Mirenee Chirinos 04/15/2017 8:47 AM End of Report [facility] 04/14/2017 8:21 EST 04/15/2017 8:21 EST Maddie Rodriguez MD PATHOLOGY ORDERLizzette FIGUEROA [facility] [address] [place] [address] documented in this encounter Visit Diagnoses Not on filedocumented in this encounter Care Teams Counter Molder Relationship Specialty Start Date End Date Deridre Sharp MD [address] [place] [address] PCP - General 09/05/11 10/31/22 documented as of this encounter
--- OUTSIDE RECORDS SUMMARY | 2023-09-22 13:53 | XMS_ITS | Encounter Summary ---
Author Organization [facility] Address [address] [place] [address] Care Team Providers Care Worm Picker Name Role Phone Deirdre Sharp MD Primary Care Provider [phone] Reason for Referral * (Routine/Next Available) - Receiving Office to Obtain Authorization Specialty Diagnoses / Procedures Referred By Contac t Referred To Contact Procedures MA OUTSIDE IMAGES MAMMO SCREENING Imaging, External Referral ID Status Reason Start Date Expiration Date Visits Requested Visits Authorized [id number] Receiving Office to Obtain Authorization 05/08/2023 1 1 Reason for Visit * (Routine/Next Available) - Receiving Office to Obtain Authorization Specialty Diagnoses / Procedures Referred By Contac t Referred To Contact Procedures MA OUTSIDE IMAGES MAMMO SCREENING Imaging, External Referral ID Status Reason Start Date Expiration Date Visits Requested Visits Authorized [id number] Receiving Office to Obtain Authorization 05/08/2023 1 1 Encounter Details Date Type Department Care Team (Latest Contact Info) Description 11/28/2021 - 11/28/2021 23:59 EDT Hospital Encounter [facility] [place] Discharge Disposition: Home or [...] 14:40 EST Appointment [facility] [address] [place] [address] documented as of this encounter Procedures Procedure Name Priority Date/Time Associated Diagnosis Comments MA OUTSIDE IMAGES MAMMO SCREENING Routine 11/28/2021 15:02 EDT documented in this encounter Results * MA OUTSIDE IMAGES MAMMO SCREENING (11/28/2021 15:02 EDT) Narrative 05/08/2023 15:02 EST This is a non-reportable exam. External Imaging IMG OTHER IMAGING OR DERABLES documented in this encounter Visit Diagnoses Not on filedocumented in this encounter Care Teams Worm Picker Relationship Specialty Start Date End Date Deirdre Sharp MD [address] [place] [address] PCP - General 09/05/11 10/31/22 documented as of this encounter
--- OUTSIDE RECORDS SUMMARY | 2023-09-22 13:53 | XMS_ITS | Encounter Summary ---
Author Organization [facility] Address [address] [place] [address] Care Team Providers Care Milking Worker Name Role Phone Deirdre Sharp MD Primary Care Provider [phone] Encounter Details Date Type Department Care Team (Latest Contact Info) Description 04/14/2017 14:46 EST - 04/14/2017 23:59 EST Hospital Encounter [address] [address] Unknown, Provider, Discharge Disposition: Home or Self Care Social History Tobacco Use Types Packs/Day Years Used Date Smoking Tobacco: Never Assessed Sex and Gender Information Value Date Recorded Sex Assigned at Not on file Gender Identity Female 11/08/2022 11:40 EDT Sexual Orientation Not on file documented as of this encounter Discharge Disposition Disposition Code Departure Means Destination Home or Self [facility] documented in this encounter Plan of Treatment Upcoming Encounters Date Type Department Care Team (Late st Contact Info) Description 01/24/2024 14:40 EST Appointment [address] [address] documented as of this encounter Visit Diagnoses Not on filedocumented in this encounter Care Teams Milking Worker Relationship Specialty Start Date End Date Deirdre Sharp MD [address] [place] [address] PCP - General 09/05/11 10/31/22 documented as of this encounter
[2023-09-22 22:13] LABS: Rheumatoid Factor <8.6 IU/mL (<12.0)
[2023-09-23 12:19] LABS: ANA Interpretation Positive (Negative); ANA Titer Pattern 1:320 Homogeneous
== END 2023-09-22 13:44 | disposition home or self-care (01) ==
LOC: LBO 13:43
PROVIDERS: PCP Family Medicine; Visit Provider Family Medicine
DX: M25.50 Pain in unspecified joint (principal); R76.8 Other specified abnormal immunological findings in serum
CPT/HCPCS: 36415; 85652; 84550; 86038; 86431

== ENCOUNTER 2024-02-18 12:06 | Outpatient (REF) | payer BC, SELFPAY ==
--- NOTE | 2024-02-18 11:45 | PAPFT_PTH ---
PATIENT: Jena Mancia LOC: [facility] U#:[id number] AGE/SX: 53/F ROOM: RE02/18/[address]: Zonia Iglesias NP : [id number] BED: DIS: 02/18/2024 SPEC #: [id number] RECD: 02/18/24 17:17 STATUS: JUNE REQ #: [id number] DARRIAN: 02/18/24 11:[address]: Kelsie PEREZ,Zonia DEPT: [facility] Cytology RECD BY: Anige Ocampo ENTERED: 02/18/24 17:17 SP TYPE: PAPFT OTHR DR: Cynthia Ogden Tissues: 1 - CX/ENDOCX FOR PAP SMEARS Procedures: PAP THIN PREP/[facility] Screening HPV DNA PROBE Comments: [id number] (HPV 16 & 18/45)
== END 2024-02-18 12:07 | disposition home or self-care (01) ==
LOC: LBN 12:06
PROVIDERS: PCP Family Medicine; Visit Provider Nurse Practitioner Women's Health
DX: Z01.419 Encounter for gynecological examination (general) (routine) without abnormal findings (principal); N95.1 Menopausal and female climacteric states
CPT/HCPCS: 88142; 87624

== ENCOUNTER 2024-07-06 14:53 | Outpatient (CLI) | payer BC, SELFPAY ==
[2024-07-06 18:23] LABS: Calculated LDL 151 mg/dL (<100); Cholesterol 250 mg/dL (<200); HDL Cholesterol 57 mg/dL (>or=50); Triglyceride 211 mg/dL (<150)
[2024-07-07 12:36] LABS: Hepatitis C Ab w Rflx HCV PCR Negative (Negative)
[2024-07-07 13:37] LABS: HIV-1/2 Ag & Ab Screen Negative (Negative)
== END 2024-07-06 14:54 | disposition home or self-care (01) ==
LOC: LBO 14:53
PROVIDERS: PCP Family Medicine; Visit Provider Family Medicine
DX: Z11.59 Encounter for screening for other viral diseases (principal); L71.9 Rosacea, unspecified; Z13.6 Encounter for screening for cardiovascular disorders; Z11.4 Encounter for screening for human immunodeficiency virus [HIV]
CPT/HCPCS: 36415; 80061; 86803; 87389